=== PATIENT | male | born 1950 | race Caucasian/White ===

== ENCOUNTER 2018-11-10 15:09 | Outpatient (CLI) | payer MEDICARE ==
--- NOTE | 2018-11-10 16:01 | RAD ---
XR Wrist 3 Lt View STANDARD: 11/10/2018 3:25 AM CLINICAL INDICATION: Wrist pain COMPARISON: Left wrist radiograph dated January 07, 2005. TECHNIQUE: 4 views. Laterality: Left wrist. FINDINGS: Bones: There is a healed instrument distal radial shaft fracture that appears unchanged from the com parison. No acute fracture is evident. Joints: There is moderate to severe radiocarpal joint osteoarthrosis. There is ulnar minus configurat ion at the DRUJ. There is advanced STT osteoarthrosis. There is advanced midcarpal joint osteoarthrosis. Soft Tissue: There is Monckeberg calcifications within the soft tissues. There is nonspecific soft ti ssue swelling of the distal forearm, wrist and hand. IMPRESSION: Worsening osteoarthrosis of the left wrist.
--- NOTE | 2018-11-10 16:13 | RAD ---
XR Shoulder Lt 3 View STANDARD: 11/10/2018 3:20 AM CLINICAL INDICATION: Shoulder pain. COMPARISON: None. FINDINGS: Bones: No acute fracture. Glenohumeral joint: There is severe glenohumeral joint osteoarthrosis AC joint: There is [id number] AC joint osteoarthrosis. Visualized lung: Clear. Soft tissues: Within normal limits. IMPRESSION: Severe glenohumeral and mild to moderate AC joint osteoarthrosis.
== END 2018-11-10 15:10 | disposition home or self-care (01) ==
LOC: BURRAD 15:09
PROVIDERS: ATTEND Nurse Practitioner Family
DX: M25.512 Pain in left shoulder (principal); M25.532 Pain in left wrist; M19.012 Primary osteoarthritis, left shoulder; M19.032 Primary osteoarthritis, left wrist

== ENCOUNTER 2019-10-26 13:29 | Inpatient (IN) | payer MEDICARE ==
[2019-10-26 14:12] LABS: #Lymphocytes 0.9 thou/uL (1.20-3.40); #Monocytes 0.3 thou/uL (0.11-0.59); #Neutrophils 5.9 thou/uL (1.40-6.50); %Basophils 0.6 % (0.0-1.0); %Eosinophils 0.5 % (0.0-10.0); %Lymphocytes 12.9 % (21.0-51.0); %Monocytes 4.3 % (0.0-10.0); %Neutrophils 81.7 % (42.0-75.0); Hemoglobin 12.2 g/dL (14.0-18.0); Mean Corpuscular Hemoglobin 27.7 pg (27.0-31.0); Mean Corpuscular Volume 86.6 fL (78.0-98.0); Mean Platelet Volume 9.9 fL (7.4-10.4); Platelet Count 137 thou/uL (130-400); RBC Distribution Width 17.1 % (11.5-14.5); Red Blood Cell (RBC) Count 4.39 mill/uL (4.70-6.10); White Blood Cell (WBC) Count 7.2 thou/uL (4.8-10.8)
[2019-10-26] MEDS ORDERED: Piperacillin/Tazobactam 4.5 GM VIAL ONE (14:21)
[2019-10-26] MEDS ORDERED: Acetaminophen 500 MG TAB ONE (14:21)
[2019-10-26] MEDS ORDERED: Sodium Chloride 0.9% 100 ML ONE (14:24)
[2019-10-26 14:30] LABS: ALT (SGPT) 18 U/L (8-55); AST (SGOT) 31 U/L (5-34); Albumin 3.6 g/dL (3.4-4.8); Alkaline Phosphatase 60 U/L (40-110); Anion Gap 20 mmol/L (10-20); BUN (Urea Nitrogen) 18 mg/dL (8.4-25.7); Bilirubin, Total 1.5 mg/dL (0.2-1.2); Calc. Creatinine Clearance 0 mL/min (70-130); Calcium 9.6 mg/dL (7.8-10.44); Carbon Dioxide 20 mmol/L (23-31); Chloride 99 mmol/L (98-107); Estimated GFR-MDRD 87; Globulin 5.2 g/dL (2.4-3.5); Glucose 124 mg/dL (83-110); Potassium 4.5 mmol/L (3.5-5.1); Protein, Total 8.8 g/dL (5.8-8.1); Sodium 134 mmol/L (136-145)
[2019-10-26 15:19] LABS: Bilirubin Moderate (Negative); Blood, Urine Moderate (Negative); Clarity Cloudy (Clear); Glucose, Urine (Dipstick) Negative (Negative); Leukocyte Negative (Negative); Nitrite Negative (Negative); Protein, Urine (Dipstick) > or equal to 300 mg/dL (Neg-Trace)
[2019-10-26 15:33] LABS: Bacteria/HPF 1+ HPF (None Seen); Epithelial Cast None Seen LPF (None Seen); Mucous/LPF 3+ LPF (<2+); Oval Fat Bodies/HPF None Seen HPF (None Seen); RBC/HPF 0-3 HPF (0-3); Renal Epithelial 0-3 HPF (None Seen); Sperm/HPF None Seen HPF (None Seen); Squamous Epithelial 0-3 HPF (0-3); Transitional Epithelial None Seen HPF (None Seen); Trichomonas/HPF None Seen HPF (None Seen); WBC/HPF 0-3 HPF (0-3); White Blood Cell Cast None Seen LPF (None Seen); Yeast-Budding None Seen HPF (None Seen); Yeast-Hyphae None Seen HPF (None Seen)
[2019-10-26 15:34] LABS: Broad Cast None Seen LPF (None Seen); Calcium Oxalate Crystals None Seen HPF (None Seen); Cellular Cast None Seen LPF (None Seen); Fatty Cast None Seen LPF (None Seen); Other Casts None Seen LPF (None Seen); Red Blood Cell Cast None Seen LPF (None Seen); Triple Phosphate Crystal None Seen HPF (None Seen); Unclassified Crystals None Seen HPF (None Seen); Waxy Cast None Seen LPF (None Seen)
--- NOTE | 2019-10-26 17:59 | RAD ---
PORTABLE CHEST: 10/26/19 An AP portable film at 1401 is compared with a 03/14/19 study. The heart is borderline in size as before. There is no definite pulmonary edema or pleural effusion. No focal pulmonary infiltrate was seen. A few scattered nodular densities were noted as usual. There is a little focal pleural thickening along the right lateral hemithorax. The right hilum seems a dale le more prominent today than 2019. I cannot exclude some adenopathy here. IMPRESSION: Exam somewhat similar to before, but possible right hilar adenopathy. See above. POS: HOME
[2019-10-26 18:21] LABS: Lactic Acid 1.2 mmol/L (0.5-2.2)
[2019-10-26] MEDS ORDERED: Ondansetron ODT 4 MG TAB PO PRN (18:54)
[2019-10-26] MEDS ORDERED: Ondansetron PF 4 MG/2 ML Vial SLOW IVP PRN (18:54)
[2019-10-26] MEDS ORDERED: Isosorbide Mononitrate (ER) 30 MG TAB PO SCH (20:45)
[2019-10-26] MEDS ORDERED: Aspirin Chewable 81 MG TAB PO SCH (20:45)
[2019-10-26] MEDS ORDERED: Allopurinol 100 MG TAB PO SCH (20:45)
[2019-10-26] MEDS: Sodium Chloride 0.9% 1,000 ML IV SCH ×2 (20:46→23:30)
[2019-10-26] MEDS: Piperacillin/Tazobactam 4.5 GM in Sodium Chloride 0.9% 100 ML IVPB SCH (20:47)
[2019-10-26] MEDS: Furosemide 20 MG TAB PO SCH (20:48)
[2019-10-26] MEDS: Metoprolol Tartrate 25 MG TAB PO SCH (20:48)
[2019-10-26] MEDS: traMADol HCl 50 MG TAB PO PRN (22:15)
[2019-10-27] MEDS: Piperacillin/Tazobactam 4.5 GM in Sodium Chloride 0.9% 100 ML IVPB SCH ×4 (01:13→20:35)
[2019-10-27] MEDS: Vancomycin HCl 1 GM in Sodium Chloride 0.9% 250 ML 250 ML IVPB SCH ×2 (03:31→15:18)
[2019-10-27] MEDS: traMADol HCl 50 MG TAB PO PRN ×2 (05:11→20:46)
[2019-10-27] MEDS: Metoprolol Tartrate 25 MG TAB PO SCH ×2 (08:26→20:41)
[2019-10-27] MEDS: Furosemide 20 MG TAB PO SCH ×2 (08:26→13:48)
[2019-10-27] MEDS ORDERED: Isosorbide Mononitrate (ER) 30 MG TAB PO SCH (09:00)
[2019-10-27] MEDS ORDERED: Aspirin Chewable 81 MG TAB PO SCH (09:00)
[2019-10-27] MEDS ORDERED: Prevnar 13-Val Conj/PF 0.5 ML SYRINGE IM ONE (09:00)
[2019-10-27] MEDS ORDERED: Allopurinol 100 MG TAB PO SCH (09:00)
[2019-10-27] MEDS ORDERED: traMADol HCl 50 MG TAB PO PRN ×2 (09:20→09:33)
[2019-10-27] MEDS ORDERED: Furosemide 20 MG TAB PO SCH (09:45)
[2019-10-27] MEDS ORDERED: Enoxaparin Sodium 40 MG/0.4 ML SYRINGE SC SCH (09:45)
[2019-10-27] MEDS ORDERED: Folic Acid 1 MG TAB PO SCH (09:45)
--- NOTE | 2019-10-27 10:39 | CT ---
CT OF THE CHEST AND ABDOMEN AND PELVIS WITH IV CONTRAST: INDICATION: A 69-year-old male with a history of fever of unknown origin and a suspicion of COVID-19 infection. The patient states lower leg and feet pain for the 4 days with a history of Hodgkin's lymphoma. COMPARISON: CT of the chest, abdomen, and pelvis dated 02/07/2019 and May 14, 2017. CHEST: There are areas of pleural thickening involving the lateral right hemithorax chest wall with worsenin g subsegmental atelectasis within the lateral segment of the right middle lobe. There are new areas of peribronchial ground-glass opacity seen peripherally within the anterior and posterior segments of the right upper lobe as well as within the apical posterior segment of the left upper lobe. There a re areas of subsegmental volume loss within the apical posterior segment of the left upper lobe that has been stable. No felipe airspace consolidation is noted. There is stable calcified granuloma in the right middle lo be and lingula. The lymph nodes within the mediastinum are stable to slightly smaller in size to the most recent comparison in January of 2019. The most prominent is an AP window lymph node measuring 1 .6 cm which is stable. There are coronary artery and thoracic aorta calcifications. There is bilate ral male gynecomastia. No axillary lymphadenopathy is evident. ABDOMEN AND PELVIS: Respiratory motion artifact slightly limits image detail. Beam hardening and scattered artifact from the patient's upper extremities being adjacent to the torso limits detail. Suspected calcified lymp h nodes within the subdiaphragmatic yulissa region is similar-appearing. Layered gallstones are seen within the gallbladder. No focal hepatic lesion is evident. There is a stable right renal cyst. Left kidney, adrenal glands, and spleen appear within normal black its. There is a mild amount of retained stool within the rectum. Small bowel is of normal caliber. Visua lized bladder is unremarkable appearing. There are bilateral total hip replacements. There is diffu se osteopenia. There are scattered degenerative changes. IMPRESSION: 1. Areas of peribronchial ground-glass opacities seen within both upper lobes can be seen with atypi janes infectious processes such as viral pneumonia. Certainly this is a pattern that could be seen wit h COVID-19. Recommend correlation with the patient's testing and continued followup. 2. Stable to slightly less prominent mediastinal lymph nodes when compared to the most recent CT of the chest, abdomen, and pelvis dated February 07, 2019. The largest lymph node is seen within the AP w indow region measuring 1.6 cm. 3. Stable cholelithiasis. 4. Stable right renal cyst. POS: BH
[2019-10-27 10:41] LABS: SARS-CoV-2 MS2 Positive; SARS-CoV-2 N Gene Negative; SARS-CoV-2 S Gene Negative; SARS-CoV-2 orf1ab Negative
[2019-10-27 11:00] LABS: #Basophils 0.1 thou/uL (0.0-0.2); #Eosinphils 0.1 thou/uL (0.0-0.7); #Lymphocytes 0.7 thou/uL (1.20-3.40); #Monocytes 0.3 thou/uL (0.11-0.59); #Neutrophils 4.9 thou/uL (1.40-6.50); %Basophils 0.9 % (0.0-1.0); %Eosinophils 1.7 % (0.0-10.0); %Lymphocytes 11.6 % (21.0-51.0); %Monocytes 4.5 % (0.0-10.0); %Neutrophils 81.3 % (42.0-75.0); Hemoglobin 9.2 g/dL (14.0-18.0); Mean Corpuscular HGB CONC 31.4 g/dL (32.0-36.0); Mean Corpuscular Hemoglobin 27.7 pg (27.0-31.0); Mean Corpuscular Volume 88.1 fL (78.0-98.0); Mean Platelet Volume 11.8 fL (7.4-10.4); Platelet Count 116 thou/uL (130-400); RBC Distribution Width 17.6 % (11.5-14.5); Red Blood Cell (RBC) Count 3.31 mill/uL (4.70-6.10); White Blood Cell (WBC) Count 6.1 thou/uL (4.8-10.8)
[2019-10-27 11:05] LABS: ALT (SGPT) 14 U/L (8-55); AST (SGOT) 23 U/L (5-34); Albumin 2.8 g/dL (3.4-4.8); Alkaline Phosphatase 45 U/L (40-110); Anion Gap 14 mmol/L (10-20); BUN (Urea Nitrogen) 16 mg/dL (8.4-25.7); Bilirubin, Total 1.1 mg/dL (0.2-1.2); Calc. Creatinine Clearance 171 mL/min (70-130); Calcium 8.2 mg/dL (7.8-10.44); Carbon Dioxide 20 mmol/L (23-31); Chloride 103 mmol/L (98-107); Estimated GFR-MDRD Greater than 90; Globulin 3.8 g/dL (2.4-3.5); Glucose 112 mg/dL (83-110); Protein, Total 6.6 g/dL (5.8-8.1); Sodium 133 mmol/L (136-145)
[2019-10-27 11:06] LABS: Troponin I 0.017 ng/mL (< 0.028)
[2019-10-27 11:21] LABS: Platelet Morphology Comment Appears Decreased; RBC Morphology Normal
[2019-10-27] MEDS ORDERED: Saccharomyces boulardii 250 MG CAP PO SCH (11:30)
[2019-10-27] MEDS: Sodium Chloride 0.9% 1,000 ML IV SCH (13:39)
[2019-10-27] MEDS: Acetaminophen 325 MG TAB PO PRN (16:58)
[2019-10-27] MEDS: Atorvastatin Calcium 40 MG TAB PO SCH (20:40)
[2019-10-27] MEDS ORDERED: FUROSEMIDE 20 MG PO SCH (21:00)
[2019-10-28] MEDS ORDERED: Sodium Chloride 0.9% 1,000 ML IV SCH (00:45)
[2019-10-28] MEDS: Piperacillin/Tazobactam 4.5 GM in Sodium Chloride 0.9% 100 ML IVPB SCH ×4 (01:44→20:20)
[2019-10-28] MEDS: Vancomycin HCl 1 GM in Sodium Chloride 0.9% 250 ML 250 ML IVPB SCH ×2 (02:42→14:57)
[2019-10-28 05:38] LABS: ALT (SGPT) 14 U/L (8-55); AST (SGOT) 24 U/L (5-34); Albumin 2.8 g/dL (3.4-4.8); Alkaline Phosphatase 49 U/L (40-110); Anion Gap 14 mmol/L (10-20); BUN (Urea Nitrogen) 14 mg/dL (8.4-25.7); Bilirubin, Total 0.9 mg/dL (0.2-1.2); Calc. Creatinine Clearance 171 mL/min (70-130); Calcium 8.4 mg/dL (7.8-10.44); Carbon Dioxide 22 mmol/L (23-31); Chloride 103 mmol/L (98-107); Estimated GFR-MDRD Greater than 90; Globulin 3.9 g/dL (2.4-3.5); Glucose 97 mg/dL (83-110); Potassium 3.7 mmol/L (3.5-5.1); Protein, Total 6.7 g/dL (5.8-8.1); Sodium 135 mmol/L (136-145); Uric Acid Less than 2.0 mg/dL (3.5-7.2)
[2019-10-28 05:53] LABS: #Basophils 0.1 thou/uL (0.0-0.2); #Eosinphils 0.2 thou/uL (0.0-0.7); #Lymphocytes 0.5 thou/uL (1.20-3.40); #Monocytes 0.3 thou/uL (0.11-0.59); #Neutrophils 3.9 thou/uL (1.40-6.50); %Basophils 1.6 % (0.0-1.0); %Eosinophils 4.3 % (0.0-10.0); %Lymphocytes 10.5 % (21.0-51.0); %Neutrophils 78.6 % (42.0-75.0); Anisocytosis SLIGHT = 6-15 cells (100X) (0-5/hpf); Hemoglobin 9.1 g/dL (14.0-18.0); Large Platelets SLIGHT; MDiff Complete? YES; Mean Corpuscular HGB CONC 30.6 g/dL (32.0-36.0); Mean Corpuscular Hemoglobin 27.4 pg (27.0-31.0); Mean Corpuscular Volume 89.5 fL (78.0-98.0); Mean Platelet Volume 11.9 fL (7.4-10.4); Ovalocytes MODERATE= 6-15 cells (100X) (0-1/hpf); Platelet Count 119 thou/uL (130-400); Platelet Morphology Comment Appears Decreased; RBC Distribution Width 17.8 % (11.5-14.5); Red Blood Cell (RBC) Count 3.32 mill/uL (4.70-6.10)
[2019-10-28] MEDS: Allopurinol 100 MG TAB PO SCH (08:22)
[2019-10-28] MEDS: Metoprolol Tartrate 25 MG TAB PO SCH ×2 (08:23→20:22)
[2019-10-28] MEDS: Isosorbide Mononitrate (ER) 30 MG TAB PO SCH (08:23)
[2019-10-28] MEDS: Saccharomyces boulardii 250 MG CAP PO SCH (08:23)
[2019-10-28] MEDS: Folic Acid 1 MG TAB PO SCH (08:23)
[2019-10-28] MEDS: Aspirin Chewable 81 MG TAB PO SCH (08:23)
[2019-10-28] MEDS: Acetaminophen 325 MG TAB PO PRN ×2 (08:23→22:44)
[2019-10-28] MEDS: Furosemide 20 MG TAB PO SCH ×2 (08:23→14:13)
[2019-10-28] MEDS: Enoxaparin Sodium 40 MG/0.4 ML SYRINGE SC SCH (08:24)
[2019-10-28] MEDS ORDERED: ATORVASTATIN 80 MG PO SCH (09:00)
[2019-10-28] MEDS ORDERED: ASPIRIN PO SCH (09:00)
[2019-10-28] MEDS ORDERED: Non-Formulary Item 1 EACH (Folic Acid [Folic Acid] 0.8 MG) PO SCH (09:00)
[2019-10-28] MEDS ORDERED: ALLOPURINOL 300 MG PO SCH (09:00)
--- NOTE | 2019-10-28 09:29 | RAD ---
RADIOGRAPH CHEST 1 VIEW: DATE: 10/28/2019 TIME: 9:20 AM HISTORY: 69 year old male with pneumonia COMPARISON: 10/26/2019. FINDINGS: Limited evaluation of lung boss because of body habitus. Mild nodular interstitial pattern involvin g much of the right lung. Magnification of cardiac shadow. No large consolidation or pneumothorax. Lateral costophrenic angles are not effaced. Allowing for technical differences, there is probably no interval change. Prominent right hilum. IMPRESSION: 1. Mild nodular interstitial pattern in right lung. 2. No definite interval change.
--- NOTE | 2019-10-28 10:19 | CT ---
CT HEAD WITHOUT IV CONTRAST COMPARISON: MRI brain on 08/10/2016 HISTORY: CVA. TECHNIQUE: Axial CT imaging at 5 mm intervals from vertex through skull base without contrast FINDINGS: There is decreased attenuation in the periventricular white matter which is nonspecific but likely re flective of chronic small vessel ischemic changes. Small low-density focus is seen in the superior aspect of the li. This is only seen on a single slice selection and is likely attributable to volum e averaging as opposed to a lacunar infarction. There is mild cerebral volume loss not unexpected for the patient's age. The ventricular system is no rmal in size, shape, and position for the degree of sulcal atrophy. Symmetric calcifications are seen in each basal ganglia. There is no evidence of an acute infarction, hemorrhage, mass effect, or midline shift. Minimal mucosal thickening in the anterior ethmoidal air cells. Osseous structures appear intact. IMPRESSION: 1. No acute intracranial abnormality demonstrated. 2. Chronic small vessel ischemic changes and cerebral volume loss.
[2019-10-28 14:17] LABS: Vancomycin, Trough 9.4 ug/mL
[2019-10-28] MEDS: Vancomycin HCl 750 MG in Sodium Chloride 0.9% 250 ML 250 ML IVPB SCH (14:56)
[2019-10-28] MEDS ORDERED: Vancomycin HCl 1.75 GM in Sodium Chloride 0.9% 500 ML IVPB SCH (15:00)
[2019-10-28] MEDS: Atorvastatin Calcium 40 MG TAB PO SCH (20:22)
[2019-10-29] MEDS: Piperacillin/Tazobactam 4.5 GM in Sodium Chloride 0.9% 100 ML IVPB SCH ×3 (01:50→14:03)
[2019-10-29] MEDS: Vancomycin HCl 750 MG in Sodium Chloride 0.9% 250 ML 250 ML IVPB SCH ×2 (03:01→14:59)
[2019-10-29] MEDS: Vancomycin HCl 1 GM in Sodium Chloride 0.9% 250 ML 250 ML IVPB SCH ×2 (03:02→14:59)
[2019-10-29] MEDS ORDERED: Vancomycin HCl 750 MG VIAL ONE (04:47)
[2019-10-29 05:14] LABS: Hemoglobin 9.4 g/dL (14.0-18.0); Platelet Count 136 thou/uL (130-400)
[2019-10-29 05:19] VITALS: BP 129/62; TEMP 98.1
[2019-10-29 05:28] LABS: Calc. Creatinine Clearance 181 mL/min (70-130); Estimated GFR-MDRD Greater than 90
--- NOTE | 2019-10-29 05:52 | HP ---
HISTORY OF PRESENT ILLNESS: The patient is a poor historian. Per his and grandson, the patient is having increased confusion after several weeks of decreased appetite, but for the last week, the patient began having incontinence, confusion, inability to ambulate, and diffuse joint aches and pains. The patient was seen in the emergency room, was found to have a temperature of 101.8 was suspected for sepsis. The patient has a history of a chronic dry cough, which is unchanged. No recent ill exposures or recent travel. Apparently, he was checked for COVID-19 just because of concerns without any symptoms several weeks ago and family believes it was negative. He has had no significant headache. Sleeping been well. No diarrhea reported. He apparently may have had some dysuria several days ago, but does not at this time and no other significant complaints. The patient has not had any recent falls. No injuries reported. No recent rashes. Denies any change in taste and no recent weight changes. PAST MEDICAL HISTORY: Significant for: 1. Coronary artery disease. 2. History of Hodgkin lymphoma in 1989 with no recurrence. 3. History of gout. 4. History of avascular necrosis of the hip. 5. History of hypertension. 6. History of hyperlipidemia. PAST SURGICAL HISTORY: Status post stent placement x2 and bilateral hip replacement. Family does report the patient has had some infection in his lungs from chemotherapy related to his Hodgkin lymphoma many years ago. MEDICATIONS: The patient is on: 1. Atorvastatin 80 mg daily. 2. Pantoprazole 40 mg daily. 3. Aspirin 81 mg daily. 4. Metoprolol tartrate 25 mg b.i.d. 5. Lisinopril 5 mg daily. 6. Isosorbide mononitrate 30 mg daily. 7. Allopurinol 300 mg daily. 8. Folic acid 0.8 mg daily. SOCIAL HISTORY: The patient lives with his . He has had some overall decline in status for several months with decreased ambulation and decreased appetite for several weeks per . The patient had episodes of mental status effects with short-term memory loss. Had normal MRI a couple of years ago, but no further workup since then. ALLERGIES: NO SIGNIFICANT KNOWN ALLERGIES. REVIEW OF SYSTEMS: The patient denies any visual changes. No sore throat reported by the patient. Cough is at baseline. Decreased appetite without nausea or emesis reported. No diarrhea reported. The patient did have some dysuria several days ago, but none since, he has become incontinent. The patient reports diffuse joint aches and pains. The patient denies depression. No recent rashes reported. PHYSICAL EXAMINATION: VITAL SIGNS: The patient in the emergency room was tachycardic in the one-teens and blood pressure slightly low at 110 systolic. The patient was slightly tachypneic in the 20s, O2 saturation was initially 88%, which improved on room air after being on 2 L of oxygen for a couple of hours. GENERAL: White male, lying in bed, easily confused, but cooperative and alert otherwise. HEENT: Atraumatic, normocephalic. Extraocular movements are intact. Pupils are equal, round, reactive to light and accommodation. Oropharynx, mucous membranes were dry. No lesions were noted. NECK: Supple. No mass palpated. CHEST: Clear to auscultation bilaterally. HEART: Regular rate and rhythm. ABDOMEN: Bowel sounds are positive in all 4 quadrants. No obvious focal tenderness noted. No masses palpated. EXTREMITIES: Show slight swelling of the ankles bilaterally without edema. The patient reported achiness and tenderness to bilateral ankles, bilateral knees, and bilateral hips without any erythema nor warmth. LABORATORY DATA: CBC had a normal white count of less than 10,000. However, his metabolic panel was nondiagnostic without significant abnormalities. Troponin was 0.03, just above normal. Lactic acid was 2.4. Urinalysis showed 1+ bacteria, but no white blood cells. ASSESSMENT AND PLAN: 1. Fever of unknown origin. The patient appears to be slightly septic, was given 2 L IV fluids. We will continue normal saline. Repeat lactic acid level. Start the patient on vancomycin and Zosyn pending blood and urine culture results. Etiology is possibly pneumonia. I would do a COVID-19, although no significant respiratory symptoms were reported. The patient is a poor historian. 2. Urinary tract infection is a possibility with a history of mild dysuria and new onset incontinence. 3. Altered mental status. The patient appears to have some underlying dementia like symptoms, which have been exacerbated by his new onset of sepsis. 4. Coronary artery disease. The patient will continue on his beta-aparna and nitrite. We will hold lisinopril while his blood pressure is slightly low at this time. 5. Decreased appetite with nausea. Suspect this is secondary to his sepsis as above. Case was discussed in detail with the patient as well as his via phone. He will be in contact isolation until COVID results are back. Job ID: [id number]
[2019-10-29] MEDS: Allopurinol 100 MG TAB PO SCH (08:19)
[2019-10-29] MEDS: Enoxaparin Sodium 40 MG/0.4 ML SYRINGE SC SCH (08:19)
[2019-10-29] MEDS: Saccharomyces boulardii 250 MG CAP PO SCH (08:19)
[2019-10-29] MEDS: Metoprolol Tartrate 25 MG TAB PO SCH (08:20)
[2019-10-29] MEDS: Folic Acid 1 MG TAB PO SCH (08:20)
[2019-10-29] MEDS: Isosorbide Mononitrate (ER) 30 MG TAB PO SCH (08:20)
[2019-10-29] MEDS: Aspirin Chewable 81 MG TAB PO SCH (08:20)
[2019-10-29] MEDS: Furosemide 20 MG TAB PO SCH ×2 (08:20→14:03)
[2019-10-29] MEDS: traMADol HCl 50 MG TAB PO PRN (08:26)
== END 2019-10-29 15:37 | disposition swing bed (61) | DRG 871 ==
LOC: BURERS 13:29 → UNDOADMIN 16:00 → BURMED 16:00 → UNDOADMIN 10-27 15:06 → BURMED 10-27 15:06
PROVIDERS: ADMIT Family Medicine; ATTEND Family Medicine
DX: A41.9 Sepsis, unspecified organism (principal); J18.9 Pneumonia, unspecified organism; N39.0 Urinary tract infection, site not specified; I25.10 Atherosclerotic heart disease of native coronary artery without angina pectoris; M10.9 Gout, unspecified; I10 Essential (primary) hypertension; E78.5 Hyperlipidemia, unspecified; F03.90 Unspecified dementia, unspecified severity, without behavioral disturbance, psychotic disturbance, mood disturbance, and anxiety; Z96.643 Presence of artificial hip joint, bilateral; Z85.72 Personal history of non-Hodgkin lymphomas; Z95.5 Presence of coronary angioplasty implant and graft
CPT/HCPCS: 36415; 70450; 71045; 71260; 74177; 80053; 80202; 81003; 81015; 82553; 82565; 83605; 83880; 84484; 84550; 85014; 85018; 85025; 85049; 85652; 87040; 87086; 87633; 87635; 87798; 87804; 90471; 90670; 94760; G0009; J1650; J2405; J2543; J3370; J3490; J7050; U0003

== ENCOUNTER 2019-10-29 15:34 | Inpatient (IN) | payer MEDICARE, OTHER ==
[2019-10-29] MEDS ORDERED: Ondansetron ODT 4 MG TAB PO PRN (16:10)
[2019-10-29] MEDS: Benzonatate 100 MG CAP PO PRN (17:28)
[2019-10-29] MEDS: traMADol HCl 50 MG TAB PO PRN (18:26)
[2019-10-29] MEDS: Atorvastatin Calcium 40 MG TAB PO SCH (20:55)
[2019-10-29] MEDS: Metoprolol Tartrate 25 MG TAB PO SCH (20:55)
[2019-10-29] MEDS: Piperacillin/Tazobactam 4.5 GM in Sodium Chloride 0.9% 100 ML IVPB SCH (20:59)
[2019-10-30] MEDS: Piperacillin/Tazobactam 4.5 GM in Sodium Chloride 0.9% 100 ML IVPB SCH ×4 (01:38→21:03)
[2019-10-30 02:13] LABS: Vancomycin, Trough 16.3 ug/mL
[2019-10-30] MEDS: Vancomycin HCl 1 GM in Sodium Chloride 0.9% 250 ML 250 ML IVPB SCH ×2 (02:33→14:50)
[2019-10-30] MEDS: Vancomycin HCl 750 MG in Sodium Chloride 0.9% 250 ML 250 ML IVPB SCH ×2 (02:34→14:50)
[2019-10-30] MEDS: traMADol HCl 50 MG TAB PO PRN (07:33)
[2019-10-30] MEDS: Metoprolol Tartrate 25 MG TAB PO SCH ×2 (08:06→21:02)
[2019-10-30] MEDS: Allopurinol 100 MG TAB PO SCH (08:06)
[2019-10-30] MEDS: Folic Acid 1 MG TAB PO SCH (08:06)
[2019-10-30] MEDS: Isosorbide Mononitrate (ER) 30 MG TAB PO SCH (08:06)
[2019-10-30] MEDS: Saccharomyces boulardii 250 MG CAP PO SCH (08:06)
[2019-10-30] MEDS: Aspirin 81 mg Enteric Coated Tablet PO SCH (08:07)
[2019-10-30] MEDS: Enoxaparin Sodium 40 MG/0.4 ML SYRINGE SC SCH (08:07)
[2019-10-30] MEDS: Benzonatate 100 MG CAP PO PRN (08:21)
[2019-10-30] MEDS ORDERED: Furosemide 20 MG TAB PO SCH (09:00)
[2019-10-30] MEDS ORDERED: Furosemide 40 MG/4 ML VIAL SLOW IVP SCH (14:00)
[2019-10-30] MEDS: Acetaminophen 325 MG TAB PO PRN (18:31)
--- NOTE | 2019-10-30 18:40 | RAD ---
PORTABLE CHEST: Date: 10-30-2019 An AP portable film at 0756 is compared with a 10-28-2019 study. FINDINGS: The vessels seem more congested today than they were previously. I cannot rule out an element of jadyn estive heart failure. The heart is mildly enlarged. The area of streaking in the vicinity of the righ t middle lobe seems a little more prominent today than previously. Sensitivity to subtle disease in t his patient's chest is very low and only obtainable on CT. There are no large effusions. IMPRESSION: 1. Interval development of congestion of vessels. 2. Slight increase in density of right middle lobe linear infiltrate. Preliminary report taken to the floor at approximately 0940. POS: HOME
[2019-10-30] MEDS: Atorvastatin Calcium 40 MG TAB PO SCH (20:57)
[2019-10-31] MEDS: Piperacillin/Tazobactam 4.5 GM in Sodium Chloride 0.9% 100 ML IVPB SCH ×4 (02:10→21:17)
[2019-10-31] MEDS: Vancomycin HCl 750 MG in Sodium Chloride 0.9% 250 ML 250 ML IVPB SCH ×2 (02:11→15:22)
[2019-10-31] MEDS: Vancomycin HCl 1 GM in Sodium Chloride 0.9% 250 ML 250 ML IVPB SCH ×2 (02:12→15:23)
[2019-10-31 04:57] LABS: Platelet Count 143 thou/uL (130-400)
[2019-10-31 05:13] LABS: ALT (SGPT) 21 U/L (8-55); AST (SGOT) 46 U/L (5-34); Albumin 2.8 g/dL (3.4-4.8); Alkaline Phosphatase 64 U/L (40-110); Anion Gap 14 mmol/L (10-20); BUN (Urea Nitrogen) 9 mg/dL (8.4-25.7); Bilirubin, Total 0.8 mg/dL (0.2-1.2); Calc. Creatinine Clearance 164 mL/min (70-130); Calcium 8.7 mg/dL (7.8-10.44); Carbon Dioxide 26 mmol/L (23-31); Chloride 100 mmol/L (98-107); Estimated GFR-MDRD Greater than 90; Globulin 4.2 g/dL (2.4-3.5); Glucose 115 mg/dL (83-110); Potassium 3.7 mmol/L (3.5-5.1); Sodium 136 mmol/L (136-145)
[2019-10-31 05:54] LABS: #Eosinphils 0.2 thou/uL (0.0-0.7); #Lymphocytes 0.5 thou/uL (1.20-3.40); #Monocytes 0.2 thou/uL (0.11-0.59); #Neutrophils 3.1 thou/uL (1.40-6.50); %Basophils 1.1 % (0.0-1.0); %Eosinophils 4.2 % (0.0-10.0); %Monocytes 5.1 % (0.0-10.0); %Neutrophils 76.7 % (42.0-75.0); Anisocytosis SLIGHT = 6-15 cells (100X) (0-5/hpf); Burr Cells SLIGHT = 2-5 cells (100X) (0-1/hpf); Hemoglobin 9.9 g/dL (14.0-18.0); Large Platelets SLIGHT; MDiff Complete? YES; Mean Corpuscular Hemoglobin 27.4 pg (27.0-31.0); Mean Corpuscular Volume 88.3 fL (78.0-98.0); Mean Platelet Volume 10.2 fL (7.4-10.4); Ovalocytes SLIGHT = 2-5 cells (100X) (0-1/hpf); Platelet Count 143 thou/uL (130-400); Platelet Morphology Comment Appears Adequate; RBC Distribution Width 17.6 % (11.5-14.5)
[2019-10-31] MEDS: traMADol HCl 50 MG TAB PO PRN (07:48)
[2019-10-31] MEDS: Folic Acid 1 MG TAB PO SCH (07:49)
[2019-10-31] MEDS: Allopurinol 100 MG TAB PO SCH (07:49)
[2019-10-31] MEDS: Enoxaparin Sodium 40 MG/0.4 ML SYRINGE SC SCH (07:50)
[2019-10-31] MEDS: Aspirin 81 mg Enteric Coated Tablet PO SCH (07:50)
[2019-10-31] MEDS: Furosemide 20 MG TAB PO SCH ×2 (07:50→14:06)
[2019-10-31] MEDS: Metoprolol Tartrate 25 MG TAB PO SCH ×2 (07:50→21:16)
[2019-10-31] MEDS: Isosorbide Mononitrate (ER) 30 MG TAB PO SCH (07:50)
[2019-10-31] MEDS: Saccharomyces boulardii 250 MG CAP PO SCH (07:50)
[2019-10-31 11:27] LABS: SARS-CoV-2 MS2 Positive; SARS-CoV-2 N Gene Negative; SARS-CoV-2 S Gene Negative; SARS-CoV-2 orf1ab Negative
[2019-10-31] MEDS: Atorvastatin Calcium 40 MG TAB PO SCH (21:16)
[2019-11-01] MEDS: Piperacillin/Tazobactam 4.5 GM in Sodium Chloride 0.9% 100 ML IVPB SCH ×4 (02:06→20:54)
[2019-11-01] MEDS: Vancomycin HCl 1 GM in Sodium Chloride 0.9% 250 ML 250 ML IVPB SCH ×2 (02:10→15:03)
[2019-11-01] MEDS: Vancomycin HCl 750 MG in Sodium Chloride 0.9% 250 ML 250 ML IVPB SCH ×2 (02:10→15:04)
[2019-11-01] MEDS: Allopurinol 100 MG TAB PO SCH (08:29)
[2019-11-01] MEDS: Enoxaparin Sodium 40 MG/0.4 ML SYRINGE SC SCH (08:29)
[2019-11-01] MEDS: Folic Acid 1 MG TAB PO SCH (08:30)
[2019-11-01] MEDS: Isosorbide Mononitrate (ER) 30 MG TAB PO SCH (08:30)
[2019-11-01] MEDS: Metoprolol Tartrate 25 MG TAB PO SCH ×2 (08:30→20:53)
[2019-11-01] MEDS: Saccharomyces boulardii 250 MG CAP PO SCH (08:30)
[2019-11-01] MEDS: Aspirin 81 mg Enteric Coated Tablet PO SCH (08:30)
[2019-11-01] MEDS: Furosemide 20 MG TAB PO SCH ×2 (08:30→14:04)
[2019-11-01 09:35] VITALS: BMI 37.8
[2019-11-01 14:18] LABS: Vancomycin, Trough 17.6 ug/mL
[2019-11-01] MEDS: Atorvastatin Calcium 40 MG TAB PO SCH (20:53)
[2019-11-02] MEDS: Piperacillin/Tazobactam 4.5 GM in Sodium Chloride 0.9% 100 ML IVPB SCH ×3 (02:04→14:55)
[2019-11-02] MEDS: Vancomycin HCl 1 GM in Sodium Chloride 0.9% 250 ML 250 ML IVPB SCH (02:21)
[2019-11-02] MEDS: Vancomycin HCl 750 MG in Sodium Chloride 0.9% 250 ML 250 ML IVPB SCH (02:21)
[2019-11-02] MEDS: Acetaminophen 325 MG TAB PO PRN (03:49)
[2019-11-02 05:00] LABS: Hemoglobin 9.6 g/dL (14.0-18.0); Platelet Count 167 thou/uL (130-400)
[2019-11-02 05:09] LABS: Calc. Creatinine Clearance 157 mL/min (70-130); Estimated GFR-MDRD Greater than 90
[2019-11-02] MEDS: Enoxaparin Sodium 40 MG/0.4 ML SYRINGE SC SCH (09:34)
[2019-11-02] MEDS: Allopurinol 100 MG TAB PO SCH (09:35)
[2019-11-02] MEDS: Aspirin 81 mg Enteric Coated Tablet PO SCH (09:35)
[2019-11-02] MEDS: Folic Acid 1 MG TAB PO SCH (09:35)
[2019-11-02] MEDS: Saccharomyces boulardii 250 MG CAP PO SCH (09:35)
[2019-11-02] MEDS: traMADol HCl 50 MG TAB PO PRN (09:36)
[2019-11-02] MEDS: Metoprolol Tartrate 25 MG TAB PO SCH ×2 (09:36→20:53)
[2019-11-02] MEDS: Isosorbide Mononitrate (ER) 30 MG TAB PO SCH (09:37)
[2019-11-02] MEDS: Furosemide 20 MG TAB PO SCH ×2 (09:38→14:45)
[2019-11-02 14:34] LABS: #Eosinphils 0.2 thou/uL (0.0-0.7); #Lymphocytes 0.8 thou/uL (1.20-3.40); #Monocytes 0.2 thou/uL (0.11-0.59); #Neutrophils 3.4 thou/uL (1.40-6.50); %Eosinophils 3.6 % (0.0-10.0); %Lymphocytes 17.6 % (21.0-51.0); %Monocytes 4.5 % (0.0-10.0); %Neutrophils 73.4 % (42.0-75.0); Hemoglobin 10.2 g/dL (14.0-18.0); Mean Corpuscular Hemoglobin 27.3 pg (27.0-31.0); Mean Platelet Volume 10.6 fL (7.4-10.4); Platelet Count 201 thou/uL (130-400); Red Blood Cell (RBC) Count 3.74 mill/uL (4.70-6.10); White Blood Cell (WBC) Count 4.7 thou/uL (4.8-10.8)
[2019-11-02 14:46] LABS: ALT (SGPT) 32 U/L (8-55); AST (SGOT) 48 U/L (5-34); Albumin 3.1 g/dL (3.4-4.8); Alkaline Phosphatase 72 U/L (40-110); Anion Gap 14 mmol/L (10-20); BUN (Urea Nitrogen) 10 mg/dL (8.4-25.7); Bilirubin, Total 0.4 mg/dL (0.2-1.2); CRP (Inflammatory) 5.81 mg/dL (= or < 0.5); Calc. Creatinine Clearance 146 mL/min (70-130); Carbon Dioxide 27 mmol/L (23-31); Chloride 102 mmol/L (98-107); Estimated GFR-MDRD Greater than 90; Globulin 4.5 g/dL (2.4-3.5); Glucose 130 mg/dL (83-110); Potassium 3.6 mmol/L (3.5-5.1); Protein, Total 7.6 g/dL (5.8-8.1); Sodium 139 mmol/L (136-145)
--- NOTE | 2019-11-02 18:34 | RAD ---
PORTABLE CHEST: 11/02/19 An AP portable film at 1437 is compared with a 10/30/2019 study. There is still some mild congestive change in the vessels, but it has improved since the prior exam. The heart size is stable. There are no large pleural effusions. No new infiltrates were detected. IMPRESSION: Congestive changes with slight improvement over the last three days. POS: HOME
[2019-11-02] MEDS: Atorvastatin Calcium 40 MG TAB PO SCH (20:52)
[2019-11-03] MEDS: Furosemide 20 MG TAB PO SCH ×2 (08:35→13:18)
[2019-11-03] MEDS: Folic Acid 1 MG TAB PO SCH (08:35)
[2019-11-03] MEDS: Isosorbide Mononitrate (ER) 30 MG TAB PO SCH (08:35)
[2019-11-03] MEDS: Enoxaparin Sodium 40 MG/0.4 ML SYRINGE SC SCH (08:35)
[2019-11-03] MEDS: Allopurinol 100 MG TAB PO SCH (08:35)
[2019-11-03] MEDS: Saccharomyces boulardii 250 MG CAP PO SCH (08:35)
[2019-11-03] MEDS: Aspirin 81 mg Enteric Coated Tablet PO SCH (08:36)
[2019-11-03] MEDS: Metoprolol Tartrate 25 MG TAB PO SCH (08:36)
[2019-11-03] MEDS: traMADol HCl 50 MG TAB PO PRN (08:43)
[2019-11-03 14:28] LABS: Vancomycin, Trough 6.4 ug/mL
[2019-11-03 19:22] VITALS: BP 144/67; TEMP 101.4
[2019-11-03 19:37] LABS: Bilirubin Negative (Negative); Blood, Urine Negative (Negative); Glucose, Urine (Dipstick) Negative (Negative); Leukocyte Negative (Negative); Nitrite Negative (Negative); Protein, Urine (Dipstick) 100 mg/dL (Neg-Trace); Urobilinogen 0.2 mg/dL (Less than 2)
[2019-11-03 19:39] LABS: Clarity Hazy (Clear)
[2019-11-03 19:42] LABS: Bacteria/HPF 2+ HPF (None Seen); Mucous/LPF 1+ LPF (<2+); RBC/HPF 0-3 HPF (0-3); Squamous Epithelial 0-3 HPF (0-3); WBC/HPF 0-3 HPF (0-3)
[2019-11-03 19:42] LABS: ALT (SGPT) 36 U/L (8-55); AST (SGOT) 49 U/L (5-34); Albumin 3.2 g/dL (3.4-4.8); Alkaline Phosphatase 69 U/L (40-110); Anion Gap 18 mmol/L (10-20); BUN (Urea Nitrogen) 12 mg/dL (8.4-25.7); Bilirubin, Total 0.6 mg/dL (0.2-1.2); Calc. Creatinine Clearance 146 mL/min (70-130); Carbon Dioxide 21 mmol/L (23-31); Chloride 97 mmol/L (98-107); Estimated GFR-MDRD Greater than 90; Globulin 4.9 g/dL (2.4-3.5); Glucose 114 mg/dL (83-110); Potassium 4.3 mmol/L (3.5-5.1); Protein, Total 8.1 g/dL (5.8-8.1); Sodium 132 mmol/L (136-145)
[2019-11-03 20:01] LABS: Anisocytosis SLIGHT = 6-15 cells (100X) (0-5/hpf); Band 2 % (5-11); Eosinophils 1 % (0-10); Lymphocytes 9 % (21-51); MDiff Complete? YES; Monocytes 5 % (0-10); Neutrophil 82 % (42-75); Platelet Morphology Comment Appears Adequate
[2019-11-03 20:05] LABS: Mean Corpuscular HGB CONC 30.7 g/dL (32.0-36.0); Mean Corpuscular Hemoglobin 27.1 pg (27.0-31.0); Mean Corpuscular Volume 88.2 fL (78.0-98.0); Platelet Count 159 thou/uL (130-400); Red Blood Cell (RBC) Count 3.69 mill/uL (4.70-6.10)
--- NOTE | 2019-11-08 11:02 | DIS ---
DATE OF ADMISSION: 10/29/2019 DATE OF DISCHARGE: 11/03/2019 The patient's date of transfer to [facility] was on 11/03/2019. BRIEF SUMMARY OF HISTORY AND PHYSICAL: The patient is a 69-year-old [place] male, who was admitted to [facility] after being seen in the emergency room with fever of unknown cause and started empirically on antibiotics. The patient had seen significant improvement, although his blood cultures and urine cultures were negative. Since he was afebrile, he was deemed appropriate to be transferred to assisted, where he could continue to improve on his overall generalized weakness and debilitation. The patient initially appeared to tolerate physical therapy and occupational therapy fairly well. He had some overall decrease in mental status, which was difficult to ascertain if this was more acute versus progressive deterioration after conversations with his via phone. The patient did show some mild improvement. He had diffuse joint aches and pains on his acute admission, which improved and again he was afebrile on Zosyn and vancomycin. After full 7 day course of IV antibiotics initiated during his acute stay, Zosyn and vancomycin was discontinued, thereafter, the patient had a recurrence of his elevated temperature and fever. There is concern for possible cholecystitis and he underwent an abdominal ultrasound after having a CT showing gallstones, which showed no obvious gross findings. After discussion with Dr. Whipple, Infectious Disease, it was deemed because of the patient's recurrent fever, his mental status changes and no exact etiology of his fever that he would be more appropriately transferred to [facility] for acute admissions. Thus, the patient was transferred on 11/03/2019. The patient was transferred to the ED via EMS. Call was made to Dr. Berta Manzo. The patient's case was discussed in detail with Dr. Manzo and the patient will be transferred to the general medicine floor. Dr. Fausto Whipple will be consulted for Infectious Disease. The patient was on IV fluids during his transfer and otherwise, his vital signs were stable to be allowed to be transferred. Job ID: [id number]
--- NOTE | 2019-11-20 01:16 | HP ---
CHIEF COMPLAINT: Diffuse debilitation and weakness after recent hospitalization. HISTORY OF PRESENT ILLNESS: The patient is a 69-year-old Latin-[place] male, who was admitted to [facility] on 10/26/2019 with fever of unknown source, requiring IV antibiotics of Zosyn and vancomycin. During his acute hospitalization, both blood and urine cultures were negative. CT scan of the chest, abdomen, and pelvis showed no acute findings. The patient underwent COVID testing, which was negative. The patient's fever resolved. His white blood count was normal, but he continued to be extremely weak, debilitated, unable to get out of bed, requiring two person transfer and thus was deemed appropriate to be transferred from acute care stay to [facility] bed for [facility]. PAST MEDICAL HISTORY: The patient has a significant past medical history of, 1. Coronary artery disease, history of lymphoma in the distant past in without recurrence. 2. History of gout. 3. History of avascular necrosis of the hip, status post hip replacement. 4. History of hypertension. PAST SURGICAL HISTORY: Includes bilateral stent placement x2 and bilateral hip replacement. MEDICATIONS: 1. Atorvastatin 80 mg daily. 2. Pantoprazole 40 mg daily. 3. Aspirin 81 mg daily. 4. Metoprolol tartrate 25 mg p.o. b.i.d. 5. Lisinopril 5 mg daily. 6. Isosorbide mononitrate 30 mg daily. 7. Allopurinol 300 mg daily. 8. Folic acid 0.8 mg daily. REVIEW OF SYSTEMS: At the time of transfer from acute [facility], the patient continued to have diffuse weakness, joint aches and pains mainly in the hips and knees and ankles, which were decreased from his acute admission stay, but still present. The patient's appetite had been fair, but improving. No recent emesis. No obvious signs of aspiration. The patient had no sore throat. He has a chronic cough, which is at its baseline per his reports. The patient denies any history of depression. He does have a fairly flat overall affect and easily confused, but is otherwise appropriate and knows that he is in the hospital and what his condition is. PHYSICAL EXAMINATION: GENERAL: Large male, alert and oriented to person and place, in no obvious distress. VITAL SIGNS: Blood pressure was 142/88, respiratory rate was 16, and pulse was 78. HEENT: Atraumatic and normocephalic. Extraocular movements are intact. Pupils are equal, round, and reactive to light and accommodation. Oropharynx, mucous membranes are moist. No exudate, discharge, or lesions. NECK: Supple. No masses palpated. CHEST: Had coarse breath sounds in the bases bilaterally. HEART: Regular rate and rhythm. ABDOMEN: Soft, nontender, and nondistended. No masses were palpated. EXTREMITIES: Showed bilateral lateral hips with old surgical scars. Fairly good passive range of motion. Diffuse weakness of the hip flexors and extensors bilaterally. Knees bilaterally showed some mild swelling without erythema, no warmth. There was good passive range of motion of the knees. There is trace edema at the ankles bilaterally, but no erythema nor warmth. LABORATORY DATA: Initial workup including blood and urine culture was negative. The patient had a CT scan of the head as well as chest, abdomen, and pelvis, which showed no signs of recurrence of lymphoma. No acute intracranial bleed nor cerebrovascular accidents. He did have some stones in his gallbladder, which was consistent with previous CT scan. ASSESSMENT AND PLAN: 1. Diffuse debilitation and weakness. This is likely related to his recent illness. The patient will continue physical therapy, occupational therapy. Hopefully, the plan is to be discharged to home with his if his strength improves, otherwise may consider long-term placement. 2. Fever of unknown cause, etiology is still unknown. Cultures have been negative. We will continue the patient on vancomycin and Zosyn and will follow if there is any recurrence of fever. 3. Decreased appetite. The patient did have gallstones in his CT scans, but it showed no significant changes from prior. He had no specific focal tenderness to his abdomen on admission. We will continue to follow. 4. Coronary artery disease, stable. Continue the patient's current medications. 5. Hypertension, controlled. 6. Disposition, as above. Plan is for the patient to be discharged to home, but if he does not show significant improvement, may have to consider long-term placement. It was discussed in detail with the patient's via phone. All her questions were answered and with the patient as best as he could understand as well. Job ID: [id number] [facility]
== END 2019-11-03 21:27 | disposition short-term general hospital (02) | DRG 948 ==
LOC: BURMED 15:37
PROVIDERS: ADMIT Family Medicine; ATTEND Family Medicine
DX: R53.81 Other malaise (principal); R53.1 Weakness; R50.9 Fever, unspecified; I25.10 Atherosclerotic heart disease of native coronary artery without angina pectoris; Z96.643 Presence of artificial hip joint, bilateral; M10.9 Gout, unspecified; I10 Essential (primary) hypertension; E78.5 Hyperlipidemia, unspecified; E78.00 Pure hypercholesterolemia, unspecified; Z74.01 Bed confinement status; Z85.71 Personal history of Hodgkin lymphoma; Z95.5 Presence of coronary angioplasty implant and graft
CPT/HCPCS: 36415; 71045; 80053; 80202; 81001; 82565; 84443; 85014; 85018; 85025; 85049; 86140; 87040; 87086; 87635; 93975; J1650; J1940; J2543; J3370; J3490; J7050; U0003

== ENCOUNTER 2020-01-01 15:28 | Inpatient (IN) | payer MEDICARE ==
[2020-01-01 17:33] VITALS: BMI 33.5
[2020-01-01] MEDS ORDERED: Acetaminophen 325 MG TAB PO PRN (18:04)
[2020-01-01] MEDS ORDERED: Bisacodyl 5 MG TAB PO PRN (18:04)
[2020-01-01] MEDS ORDERED: Bisacodyl 10 MG SUPP PR PRN ×2 (18:04→18:06)
[2020-01-01] MEDS ORDERED: Nitroglycerin 0.4 MG TAB (25 Tab Bottle) SL PRN (18:06)
[2020-01-01] MEDS ORDERED: Guaifenesin DM 100-10/5 ML UDCUP PO PRN (18:06)
[2020-01-01] MEDS ORDERED: Ondansetron ODT 4 MG TAB PO PRN (18:06)
[2020-01-01] MEDS ORDERED: Polyethylene Glycol 3350 17 GM Packet PO PRN (18:06)
[2020-01-01] MEDS ORDERED: cloNIDine 0.1 MG TAB PO PRN (18:06)
[2020-01-01] MEDS ORDERED: Acetaminophen/Codeine 30-300mg Tablet PO PRN ×2 (18:06)
[2020-01-01] MEDS ORDERED: Loperamide HCl 2 MG CAP PO PRN (18:26)
[2020-01-01] MEDS ORDERED: Mag-Al Plus 1200 MG/1200 MG/120 MG/30 ML UDCUP PO PRN (18:27)
[2020-01-01] MEDS ORDERED: Nystatin Powder 15 GM BOT TOP PRN (18:30)
[2020-01-01] MEDS: Atorvastatin Calcium 40 MG TAB PO SCH (20:39)
[2020-01-01] MEDS: Apixaban 5 MG TAB PO SCH (20:39)
[2020-01-01] MEDS: Carvedilol 3.125 MG TAB PO SCH (20:39)
[2020-01-02] MEDS: Acetaminophen 325 MG TAB PO SCH ×4 (00:01→17:34)
[2020-01-02] MEDS: Losartan Potassium 50 MG TAB PO SCH (10:11)
[2020-01-02] MEDS: Carvedilol 3.125 MG TAB PO SCH ×2 (10:11→21:33)
[2020-01-02] MEDS: Furosemide 20 MG TAB PO SCH (10:11)
[2020-01-02] MEDS: Allopurinol 100 MG TAB PO SCH (10:11)
[2020-01-02] MEDS: Apixaban 5 MG TAB PO SCH ×2 (10:11→21:33)
[2020-01-02] MEDS: Folic Acid 1 MG TAB PO SCH (10:12)
[2020-01-02] MEDS: Saccharomyces boulardii 250 MG CAP PO SCH (10:12)
[2020-01-02] MEDS: Atorvastatin Calcium 40 MG TAB PO SCH (21:33)
[2020-01-03] MEDS: Acetaminophen 325 MG TAB PO SCH ×3 (06:00→13:53)
[2020-01-03] MEDS: Furosemide 20 MG TAB PO SCH (08:27)
[2020-01-03] MEDS: Allopurinol 100 MG TAB PO SCH (08:27)
[2020-01-03] MEDS: Carvedilol 3.125 MG TAB PO SCH (08:28)
[2020-01-03] MEDS: Apixaban 5 MG TAB PO SCH (08:28)
[2020-01-03] MEDS: Folic Acid 1 MG TAB PO SCH (08:28)
[2020-01-03] MEDS: Saccharomyces boulardii 250 MG CAP PO SCH (08:28)
[2020-01-03] MEDS: Losartan Potassium 50 MG TAB PO SCH (08:32)
[2020-01-03] MEDS ORDERED: Iopamidol 370 76% 100 ML VIAL ONE (09:38)
[2020-01-03 12:09] LABS: #Basophils 0.1 thou/uL (0.0-0.2); #Eosinphils 0.1 thou/uL (0.0-0.7); #Lymphocytes 1.3 thou/uL (1.20-3.40); #Monocytes 0.5 thou/uL (0.11-0.59); %Basophils 1.5 % (0.0-1.0); %Eosinophils 1.2 % (0.0-10.0); %Lymphocytes 21.5 % (21.0-51.0); %Monocytes 8.8 % (0.0-10.0); Hemoglobin 10.2 g/dL (14.0-18.0); Mean Corpuscular HGB CONC 31.1 g/dL (32.0-36.0); Mean Corpuscular Hemoglobin 27.8 pg (27.0-31.0); Mean Corpuscular Volume 89.3 fL (78.0-98.0); Mean Platelet Volume 8.5 fL (7.4-10.4); Platelet Count 189 thou/uL (130-400); Red Blood Cell (RBC) Count 3.68 mill/uL (4.70-6.10)
--- NOTE | 2020-01-03 12:14 | CT ---
CT BRAIN NONCONTRAST: DATE: 01/03/2020 12:06 PM HISTORY: 69-year-old male with acute stroke symptoms: Right upper extremity weakness and altered mental status . Dr. Lauren verbally gave this stroke alert protocol report by telephone to Dr. Espana of [facility] at 12:11 PM 01/03/2020. COMPARISON: 12/15/2019 FINDINGS: There is no evidence of acute intra-axial or extra-axial hemorrhage. There is no midline shift or any other mass effect. There is no extra-axial fluid collection. There is ventriculomegaly. Calvarium is intact. There is diffuse brain parenchymal volume loss. There are low attenuation areas in the whi te matter. These are nonspecific, but in a patient of this age, they are probably chronic ischemic white matter changes due to microvascular atherosclerosis. No interval change overall. IMPRESSION: 1) No acute intracranial findings. 2) involutional changes and chronic ischemic white matter changes.
[2020-01-03 12:22] LABS: Bilirubin, Total 0.5 mg/dL (0.2-1.2); Calcium 8.8 mg/dL (7.8-10.44); Carbon Dioxide 25 mmol/L (23-31); Chloride 96 mmol/L (98-107); Glucose 110 mg/dL (83-110); Potassium 4.7 mmol/L (3.5-5.1); Protein, Total 7.6 g/dL (5.8-8.1); Sodium 131 mmol/L (136-145)
[2020-01-03 12:23] LABS: Albumin 3.4 g/dL (3.4-4.8); Alkaline Phosphatase 80 U/L (40-110); BUN (Urea Nitrogen) 9 mg/dL (8.4-25.7); Calc. Creatinine Clearance 130 mL/min (70-130); Estimated GFR-MDRD Greater than 90; Globulin 4.2 g/dL (2.4-3.5)
[2020-01-03 12:24] LABS: ALT (SGPT) 7 U/L (8-55); AST (SGOT) 14 U/L (5-34)
[2020-01-03 12:40] LABS: Anion Gap 16 mmol/L (10-20); CK (CPK) 29 U/L (30-200)
[2020-01-03 12:45] LABS: CKMB 0.4 ng/mL (0-6.6)
--- NOTE | 2020-01-03 13:09 | CT ---
CT ANGIOGRAM NECK WITH CONTRAST CT ANGIOGRAM BRAIN WITH CONTRAST: DATE: 01/03/2020 HISTORY: 69-year-old male with acute stroke symptoms: Sudden change in altered mental status, and right upper extremity weakness of sudden onset. Dr. Lauren verbally gave this acute stroke alert protocol report by telephone to Dr. Espana of [facility] at 1:06 PM 01/03/2020 TECHNIQUE: After IV contrast injection, arterial bolus chasing technique scan performed from AP window to vertex of head. Coronal and sagittal 3-D MIP reconstructions. FINDINGS: Right pleural effusion. Diffuse groundglass changes in bilateral upper lobes, nonspecific, but favore d to represent pulmonary interstitial edema. Aortic arch: No aneurysm or dissection. Brachiocephalic: No high-grade stenosis. Right subclavian: Focal kink at mid vessel causing some stenosis. No other focal stenosis. Left subclavian: Distal portion obscured by streak artifact from dense contrast bolus in adjacent lef t subclavian vein. Normal caliber proximal and mid vessel. Right vertebral: Diminutive but patent. Left vertebral: Dominant. No stenosis. Right common carotid: No high-grade stenosis. Left common carotid: No high-grade stenosis. Right internal carotid: Medialized, retropharyngeal carotid bulb. Atherosclerotic calcified plaque th roughout all and proximal internal carotid. No high-grade stenosis. Left internal carotid: Medialized, retropharyngeal carotid bulb. Atherosclerotic calcified plaque thr oughout all and proximal internal carotid. No high-grade stenosis. Right MCA: No M1 segment thrombus, occlusion, or high-grade stenosis. Left MCA: No M1 segment occlusion, thrombosis, or high-grade stenosis. Bilateral MICHELLE: Diminutive right A1 segment. Normal left A1 segment. Patent bilateral A2 segments. Patent bilateral posterior communicating arteries. Proximal core cleaner are patent. Dural venous sinuses: No evidence of thrombosis. IMPRESSION: 1) no M1 segment thrombus or occlusion. 2) atherosclerosis of bilateral proximal internal carotid arteries. 3) no high-grade stenosis identified in major vessels of neck. 4) pleural effusion and probable pulmonary interstitial edema.
[2020-01-03 16:56] VITALS: BP 148/88; TEMP 100
--- NOTE | 2020-01-05 15:21 | DIS ---
DATE OF ADMISSION: 01/01/2020 DATE OF DISCHARGE: 01/03/2020 DISCHARGE/TRANSFER SUMMARY DATE OF TRANSFER: 01/03/2020 ADMISSION DIAGNOSIS: Severe deconditioning after prolonged hospitalization with a complex medical history, see recent history and physical. REASON FOR TRANSFER: Acute altered mental status with fever, suspected sepsis. BRIEF SUMMARY HOSPITAL COURSE: The patient is a 69-year-old male, who was initially admitted to [facility] on 01/01/2020, after prolonged hospitalization at [facility]. See previous medical records. The patient was admitted and initiated on physical therapy and occupational therapy. He was doing well, then on the morning of 01/03/2020, the patient had acute onset of altered mental status, may have had some unilateral facial deficits, dysarthria, confusion, was found to have a fever 101. A code green was called. The patient was transferred over to the emergency room. In the emergency room, the patient underwent a CT scan, which showed no acute CT findings, but with the fever and altered mental status, there was concern for sepsis and septic encephalopathy and thus the patient was deemed appropriate to be transferred back to [facility] in [place] for acute care status. The hospitalist team accepted the patient. The patient will be transferred from the emergency room in [place] to [place] for acute admission. Job ID: [id number]
--- NOTE | 2020-01-08 03:03 | HP ---
CHIEF COMPLAINT: Reason for transfer to [facility] is deconditioning. HISTORY OF PRESENT ILLNESS: The patient is extremely pleasant 69-year-old with a greater than 6-week history complicated by multiple hospital admissions. Most recently, the patient was admitted to [facility] on December 15, 2019. At that time, he was found to have pneumonia with Klebsiella bacteremia as well as ascending cholangitis. The patient developed acute post hemorrhagic anemia as well as combined systolic and diastolic heart failure related to cardiomyopathy. The patient had an episode of ventricular tachycardia as well. Underwent cardiac catheterization and stenting with a 60% LAD stenosis. His hospital course was also complicated by acute pancreatitis with ascending cholangitis and choledocholithiasis requiring cholecystectomy. The patient is severely deconditioned and has been unable to get out of bed for more than 6 weeks due to his frequent hospitalizations and multiple medical conditions and is transferred from [facility] to [facility] for rehabilitation. Of note, the patient also had a CT scan during his last hospitalization for possible PE and he is on Eliquis. PAST MEDICAL HISTORY: 1. Ventricular tachycardia, on a LifeVest. 2. History of pneumonia with Klebsiella bacteremia, resolved. 3. History of ascending cholangitis, status post cholecystectomy. 4. Combined systolic and diastolic heart failure. 5. Cardiomyopathy. 6. Coronary artery disease, status post PCI. 7. Hypertension. 8. Dyslipidemia. 9. Acute pancreatitis, resolved. 10. History of GI bleed with anemia. 11. Possible PE. 12. History of Hodgkin lymphoma in the past, stable. 13. History of dementia. 14. Inability to walk for the last 6 weeks. MEDICATIONS: 1. Tylenol No.3 1-2 p.o. q.4 hours p.r.n. pain. 2. Eliquis 5 mg p.o. b.i.d. 3. Aspirin 81 mg daily. 4. Lipitor 40 mg daily. 5. Coreg 3.125 mg p.o. b.i.d. 6. Lasix 20 mg daily. 7. Cozaar 25 mg daily. 8. Protonix 40 mg daily. 9. Florastor 250 mg daily. 10. Flagyl 500 mg p.o. t.i.d. 11. Folic acid 1 mg daily. 12. Allopurinol 300 mg daily. ALLERGIES: CEPHALEXIN. CODE STATUS: The patient is DNR by his wishes. DIET: 1500 calorie, ADA, diabetic, fluid-restricted diet. REVIEW OF SYSTEMS: At this time, the patient denies any increase in symptoms. He says his appetite has been poor, but denies abdominal pain. The patient had no vomiting or diarrhea. Has had some occasional loose stools, but none recently. The patient denies any URI-like symptoms. He denies any significant cough. No chest pain currently, nor shortness of breath, but he is severely deconditioned and unable to ambulate. The patient denies depression, but does say he would like to go back home, which has kept him down lately emotionally. The patient denies any rash. He is unsure if he has had any recent weight loss or weight gain. PHYSICAL EXAMINATION: GENERAL: Elderly male, in no obvious distress, cooperative, but easily confused. HEENT: Atraumatic, normocephalic. EOMs were intact. NECK: Supple. No mass palpated. CHEST: Had rales at the bases bilaterally. HEART: Regular rate and rhythm. ABDOMEN: Showed well-healed healing scars from recent cholecystectomy laparoscopically. Abdomen is otherwise soft, nontender. EXTREMITIES: Showed no cyanosis, clubbing, or edema. ASSESSMENT AND PLAN: 1. Severe deconditioning. The patient has not been ambulatory for 6 weeks and apparently with his initial hospitalization in November, he had not been able to ambulate at home for several weeks. We will initiate physical therapy and occupational therapy. The patient has also had some dysphagia. We will obtain a Speech Therapy eval to ensure he is not having any silent aspiration. 2. Ventricular tachycardia. Patient is on a LifeVest. He underwent a recent percutaneous transluminal coronary angioplasty with a stenting. He is on Eliquis b.i.d. We will continue with LifeVest and follow up with Cardiology. 3. Suspected recent pulmonary embolism. Patient is on Eliquis. He did have some anemia in his recent hospitalization, I do not believe he has required a blood transfusion. We will need to follow his hemoglobin and hematocrit. May need iron supplementation. 4. Recent bacteremia, this is resolved. We will continue to follow. 5. Hypertension. Continue the patient on his current medications. 6. Combined systolic and diastolic heart failure. The patient is on Lasix. We will continue to follow. 7. History of aortic stenosis. This is being treated medically. 8. Hyperlipidemia. We will continue patient on routine anti-hyperlipidemia agents. DISPOSITION: Patient is a DNR code status. He does want to go back home if he is able to ambulate. If not, he may need long-term placement. Job ID: [id number]
== END 2020-01-03 15:30 | disposition short-term general hospital (02) | DRG 871 ==
LOC: BURMED 17:00
PROVIDERS: ADMIT Family Medicine; ATTEND Family Medicine
DX: A41.9 Sepsis, unspecified organism (principal); G93.41 Metabolic encephalopathy; I47.1 Supraventricular tachycardia; I50.42 Chronic combined systolic (congestive) and diastolic (congestive) heart failure; I42.9 Cardiomyopathy, unspecified; Z66 Do not resuscitate; R53.81 Other malaise; R13.10 Dysphagia, unspecified; I25.10 Atherosclerotic heart disease of native coronary artery without angina pectoris; F03.90 Unspecified dementia, unspecified severity, without behavioral disturbance, psychotic disturbance, mood disturbance, and anxiety; I11.0 Hypertensive heart disease with heart failure; E78.5 Hyperlipidemia, unspecified; R47.1 Dysarthria and anarthria; Z95.5 Presence of coronary angioplasty implant and graft; Z86.711 Personal history of pulmonary embolism; Z85.72 Personal history of non-Hodgkin lymphomas; Z79.82 Long term (current) use of aspirin; Z88.1 Allergy status to other antibiotic agents; Z90.49 Acquired absence of other specified parts of digestive tract
CPT/HCPCS: 36416; 70450; 70496; 70498; 80053; 82550; 82553; 83605; 84484; 85025; Q9967

== ENCOUNTER 2020-01-03 12:46 | Emergency (ER) | payer MEDICARE ==
[2020-01-03] MEDS ORDERED: Ketorolac Tromethamine 30 MG/ML VIAL ONE (14:25)
--- NOTE | 2020-01-03 18:29 | RAD ---
PORTABLE CHEST: 01/03/20 An AP portable film at 1318 is compared with a 12/15/19 study. The depth of inspiration is very shallow which crowds the lung markings and also makes seeing the low er lobes very difficult. In spite of this, there appears to be some congestion of the vessels and pro minence of the interstitium. The finding most likely represent congestive change, though an infectiou s process is not strictly ruled out. There probably is a little bit of pleural fluid bilaterally. The heart is upper normal in size. IMPRESSION: Vascular prominence and interstitial prominence. Edema is favored, but infectious process is also in the differential. POS: HOME
== END 2020-01-03 15:35 | disposition short-term general hospital (02) ==
LOC: BURERS 12:46
DX: A41.9 Sepsis, unspecified organism (principal); I25.10 Atherosclerotic heart disease of native coronary artery without angina pectoris; M10.9 Gout, unspecified; E78.5 Hyperlipidemia, unspecified; I10 Essential (primary) hypertension; F17.220 Nicotine dependence, chewing tobacco, uncomplicated
CPT/HCPCS: 71045; 87040; 96361; 96365; 96375; J1885; J1956; J3370

== ENCOUNTER 2020-01-07 16:15 | Inpatient (IN) | payer MEDICARE ==
[2020-01-07] MEDS ORDERED: Ondansetron ODT 4 MG TAB PO PRN (19:42)
[2020-01-07] MEDS ORDERED: Bisacodyl 10 MG SUPP PR PRN ×2 (19:42→19:45)
[2020-01-07] MEDS ORDERED: Senokot S 8.6-50 MG TAB PO PRN (19:42)
[2020-01-07] MEDS ORDERED: Nystatin Cream 15 GM TUBE TOP PRN (19:45)
[2020-01-07] MEDS ORDERED: Polyethylene Glycol 3350 17 GM Packet PO PRN (19:45)
[2020-01-07] MEDS ORDERED: Nitroglycerin 0.4 MG TAB (25 Tab Bottle) SL PRN (19:45)
[2020-01-07] MEDS ORDERED: Guaifenesin DM 100-10/5 ML UDCUP PO PRN (19:45)
[2020-01-07] MEDS ORDERED: Acetaminophen 325 MG TAB PO PRN (19:45)
[2020-01-07] MEDS: Atorvastatin Calcium 40 MG TAB PO SCH (21:34)
[2020-01-07] MEDS: Famotidine 20 MG TAB PO SCH (21:34)
[2020-01-07] MEDS: Apixaban 5 MG TAB PO SCH (21:34)
[2020-01-07] MEDS: Carvedilol 3.125 MG TAB PO SCH (21:34)
--- NOTE | 2020-01-08 02:32 | HP ---
CHIEF COMPLAINT/REASON FOR ADMISSION: Deconditioning. HISTORY OF PRESENT ILLNESS: Patient is an extremely pleasant 69-year-old male, who had a prolonged history of illness over the last two months with frequent admissions. Patient recently had a 3-week stay at [facility], admitted on 12/15/2019 and transferred to [facility] on 01/01/2020. After about 48 hours, patient had an episode of acute febrile illness with altered mental status requiring Code Green. Patient was seen in the emergency room and transferred to [facility] for evaluation. At [facility], patient had both urine and blood cultures which were negative. Imaging study, including CT scan of the abdomen and pelvis was negative. Patient was diagnosed with acute metabolic encephalopathy possibly due to a viral illness, hyponatremia, hypomagnesemia, and iron deficiency. During his hospital course, he was given IV fluids. He was afebrile for four days. He had a COVID test which was negative. He was found to be iron deficient with iron level of 30, and magnesium was low at 1.4, and these were both supplemented. Since the patient had been afebrile for four days without signs of illness other than his baseline status, he was transferred back to [facility] for further rehabilitation. PAST MEDICAL HISTORY: 1. Status post cholecystectomy approximately one month ago; ventricular tachycardia, for which the patient has continued LifeVest; pneumonia on recent hospitalization with Klebsiella bacteremia; ascending cholangitis, status post cholecystectomy; aortic stenosis, treated medically; coronary artery disease, status post PCI on his previous acute admission; acute posthemorrhagic anemia; cardiomyopathy, combined systolic and diastolic heart failure; hypertension; hyperlipidemia; and history of acute pancreatitis. 2. History of GI bleeding. 3. History of Hodgkin's disease, in remission for approximately 20 years. MEDICATIONS: Include allopurinol 300 mg daily for gout, folic acid 1 mg daily, apixaban 5 mg p.o. b.i.d., Lipitor 40 mg at bedtime, Coreg 3.125 mg b.i.d., iron sulfate 325 mg p.o. daily, furosemide 20 mg daily, Cozaar 25 mg daily, Protonix 40 mg daily, Florastor 250 mg daily, Robitussin p.r.n. cough, Maalox p.r.n., clonidine p.r.n. hypertension, Tylenol 650 mg p.o. q.6 hours p.r.n. pain, and Zofran p.r.n. nausea. SOCIAL HISTORY: Prior to the patient's frequent episodes of hospitalizations over the last two months, patient had been living in a home but had several months of progressive deterioration in his status. There was a concern for possible history of CVA versus dementia in the recent past. The patient has been nonambulatory for the last two months and had recently been admitted to rehab center, followed by a group home at [facility]. Patient is currently not ambulatory, needs assistance with transfers and general hygiene. Patient has a history of distant past of smoking and social alcohol use only and no other social drug use. REVIEW OF SYSTEMS: Patient presently says his appetite is poor, but denies nausea or vomiting. He reports intermittent episodes of constipation, none presently. Patient denies any dysuria or hematuria. He reports diffuse muscle aches and pains for the last two months. Patient does not report any weakness that is acute, but have progressive decreased ability to ambulate. Patient denied any URI-like symptoms. He has occasional cough but denies chest pain or shortness of breath. Patient denies any rashes. Patient denies depression other than the fact that he has had multiple hospitalizations and would like to go home. PHYSICAL EXAMINATION: GENERAL: White male, cooperative, but easily confused, in no obvious distress. VITAL SIGNS: Blood pressure 148/68, respiratory rate was 16, and pulse was 82. HEENT: Extraocular movements were intact. Oropharynx was clear. NECK: Supple. CHEST: Clear auscultation bilaterally. HEART: Regular rate and rhythm. ABDOMEN: Soft. A well-healed scar from his recent laparoscopic cholecystectomy was noted. Nontender. Bowel sounds were positive. EXTREMITIES: Showed no cyanosis, clubbing, or edema. Extremities looked pale. Patient had no focal joint tenderness noted. ASSESSMENT: Severe deconditioning. Patient was initially hospitalized in November at [facility]. Since then, he has been nonambulatory. He has had prolonged stay in [facility] for two different hospitalizations with a course of rehab and group home at [facility] in-between those two hospitalizations. Most recently, patient had an episode of fever with altered mental status, which etiology was unclear. PLAN: 1. To initiate physical therapy and occupational therapy. Speech Therapy will be consulted since the patient had a history of dysphagia. 2. Supraventricular tachycardia. Patient will follow up with front of house manager. He underwent CHAR FILTER TANK TENDER HEAD in his hospitalization early in December and had stent placement. He will continue with LifeVest for now. 3. History of sepsis with Klebsiella bacteremia. Patient has had negative blood cultures. He is off all antibiotics and has been afebrile for multiple days. 4. History of ascending cholangitis, status post cholecystectomy. Patient appears to be recovering. Advance diet as he tolerates. 5. Hypertension, controlled. Continue current medications. 6. History of Hodgkin's lymphoma, distant past. No sign of recurrence. DISPOSITION: Patient would like to go back to home. He is nonambulatory. His goal would be to walk. He has not walked in the last two months. We will see how he responds to physical therapy and occupational therapy. Patient is on Eliquis, status post pulmonary emboli on one of his hospitalizations in the last two months. He will not need any further anticoagulation. Job ID: [id number]
[2020-01-08] MEDS: Folic Acid 1 MG TAB PO SCH (08:14)
[2020-01-08] MEDS: Losartan Potassium 50 MG TAB PO SCH (08:14)
[2020-01-08] MEDS: Ferrous Sulfate 325 MG TAB PO SCH (08:14)
[2020-01-08] MEDS: Saccharomyces boulardii 250 MG CAP PO SCH (08:14)
[2020-01-08] MEDS: Famotidine 20 MG TAB PO SCH ×2 (08:14→21:09)
[2020-01-08] MEDS: Allopurinol 100 MG TAB PO SCH (08:14)
[2020-01-08] MEDS: Apixaban 5 MG TAB PO SCH ×2 (08:14→21:09)
[2020-01-08] MEDS: Carvedilol 3.125 MG TAB PO SCH ×2 (08:15→21:09)
[2020-01-08] MEDS: Furosemide 20 MG TAB PO SCH (08:15)
[2020-01-08] MEDS: Atorvastatin Calcium 40 MG TAB PO SCH (21:09)
[2020-01-09] MEDS: Allopurinol 100 MG TAB PO SCH (08:32)
[2020-01-09] MEDS: Saccharomyces boulardii 250 MG CAP PO SCH (08:32)
[2020-01-09] MEDS: Apixaban 5 MG TAB PO SCH ×2 (08:33→21:30)
[2020-01-09] MEDS: Ferrous Sulfate 325 MG TAB PO SCH (08:33)
[2020-01-09] MEDS: Carvedilol 3.125 MG TAB PO SCH ×2 (08:33→21:30)
[2020-01-09] MEDS: Famotidine 20 MG TAB PO SCH ×2 (08:33→21:30)
[2020-01-09] MEDS: Folic Acid 1 MG TAB PO SCH (08:33)
[2020-01-09] MEDS: Furosemide 20 MG TAB PO SCH (08:33)
[2020-01-09] MEDS: Losartan Potassium 50 MG TAB PO SCH (08:35)
[2020-01-09] MEDS: Acetaminophen 325 MG TAB PO PRN (09:35)
[2020-01-09] MEDS: Atorvastatin Calcium 40 MG TAB PO SCH (21:29)
[2020-01-10] MEDS: Ferrous Sulfate 325 MG TAB PO SCH (08:52)
[2020-01-10] MEDS: Saccharomyces boulardii 250 MG CAP PO SCH (08:53)
[2020-01-10] MEDS: Allopurinol 100 MG TAB PO SCH (08:54)
[2020-01-10] MEDS: Apixaban 5 MG TAB PO SCH ×2 (08:54→20:18)
[2020-01-10] MEDS: Losartan Potassium 50 MG TAB PO SCH (08:54)
[2020-01-10] MEDS: Famotidine 20 MG TAB PO SCH ×2 (08:54→20:18)
[2020-01-10] MEDS: Carvedilol 3.125 MG TAB PO SCH ×2 (08:54→20:18)
[2020-01-10] MEDS: Furosemide 20 MG TAB PO SCH (08:56)
[2020-01-10] MEDS: Folic Acid 1 MG TAB PO SCH (08:56)
[2020-01-10] MEDS: Atorvastatin Calcium 40 MG TAB PO SCH (20:18)
[2020-01-11] MEDS: Furosemide 20 MG TAB PO SCH (08:32)
[2020-01-11] MEDS: Ferrous Sulfate 325 MG TAB PO SCH (08:32)
[2020-01-11] MEDS: Saccharomyces boulardii 250 MG CAP PO SCH (08:32)
[2020-01-11] MEDS: Apixaban 5 MG TAB PO SCH ×2 (08:32→21:47)
[2020-01-11] MEDS: Famotidine 20 MG TAB PO SCH ×2 (08:32→21:43)
[2020-01-11] MEDS: Losartan Potassium 50 MG TAB PO SCH (08:33)
[2020-01-11] MEDS: Allopurinol 100 MG TAB PO SCH (08:33)
[2020-01-11] MEDS: Folic Acid 1 MG TAB PO SCH (08:34)
[2020-01-11] MEDS: Carvedilol 3.125 MG TAB PO SCH ×2 (08:34→21:43)
[2020-01-11] MEDS: Atorvastatin Calcium 40 MG TAB PO SCH (21:43)
[2020-01-12] MEDS: Carvedilol 3.125 MG TAB PO SCH ×2 (09:10→20:58)
[2020-01-12] MEDS: Allopurinol 100 MG TAB PO SCH (09:10)
[2020-01-12] MEDS: Saccharomyces boulardii 250 MG CAP PO SCH (09:10)
[2020-01-12] MEDS: Ferrous Sulfate 325 MG TAB PO SCH (09:11)
[2020-01-12] MEDS: Losartan Potassium 50 MG TAB PO SCH (09:11)
[2020-01-12] MEDS: Furosemide 20 MG TAB PO SCH (09:12)
[2020-01-12] MEDS: Famotidine 20 MG TAB PO SCH ×2 (09:12→20:58)
[2020-01-12] MEDS: Folic Acid 1 MG TAB PO SCH (09:12)
[2020-01-12] MEDS: Apixaban 5 MG TAB PO SCH ×2 (09:12→20:58)
[2020-01-12] MEDS: Atorvastatin Calcium 40 MG TAB PO SCH (20:58)
[2020-01-13] MEDS: Famotidine 20 MG TAB PO SCH ×2 (09:37→20:49)
[2020-01-13] MEDS: Saccharomyces boulardii 250 MG CAP PO SCH (09:37)
[2020-01-13] MEDS: Losartan Potassium 50 MG TAB PO SCH (09:37)
[2020-01-13] MEDS: Ferrous Sulfate 325 MG TAB PO SCH (09:38)
[2020-01-13] MEDS: Allopurinol 100 MG TAB PO SCH (09:38)
[2020-01-13] MEDS: Folic Acid 1 MG TAB PO SCH (09:38)
[2020-01-13] MEDS: Apixaban 5 MG TAB PO SCH ×2 (09:38→20:49)
[2020-01-13] MEDS: Furosemide 20 MG TAB PO SCH (09:38)
[2020-01-13] MEDS: Carvedilol 3.125 MG TAB PO SCH ×2 (09:39→20:49)
[2020-01-13] MEDS: Acetaminophen 325 MG TAB PO PRN (09:42)
[2020-01-13] MEDS: Mag-Al Plus 1200 MG/1200 MG/120 MG/30 ML UDCUP PO PRN (09:43)
[2020-01-13] MEDS: Atorvastatin Calcium 40 MG TAB PO SCH (20:49)
[2020-01-14] MEDS: Mag-Al Plus 1200 MG/1200 MG/120 MG/30 ML UDCUP PO PRN (08:19)
[2020-01-14] MEDS: Famotidine 20 MG TAB PO SCH ×2 (08:21→20:05)
[2020-01-14] MEDS: Apixaban 5 MG TAB PO SCH ×2 (08:21→20:05)
[2020-01-14] MEDS: Furosemide 20 MG TAB PO SCH (08:21)
[2020-01-14] MEDS: Saccharomyces boulardii 250 MG CAP PO SCH (08:22)
[2020-01-14] MEDS: Ferrous Sulfate 325 MG TAB PO SCH (08:22)
[2020-01-14] MEDS: Losartan Potassium 50 MG TAB PO SCH (08:23)
[2020-01-14] MEDS: Allopurinol 100 MG TAB PO SCH (08:23)
[2020-01-14] MEDS: Folic Acid 1 MG TAB PO SCH (08:24)
[2020-01-14] MEDS: Carvedilol 3.125 MG TAB PO SCH ×2 (08:25→20:05)
[2020-01-14] MEDS: Atorvastatin Calcium 40 MG TAB PO SCH (20:05)
[2020-01-15] MEDS: Saccharomyces boulardii 250 MG CAP PO SCH (09:04)
[2020-01-15] MEDS: Losartan Potassium 50 MG TAB PO SCH (09:04)
[2020-01-15] MEDS: Famotidine 20 MG TAB PO SCH ×2 (09:04→20:24)
[2020-01-15] MEDS: Apixaban 5 MG TAB PO SCH ×2 (09:04→20:24)
[2020-01-15] MEDS: Folic Acid 1 MG TAB PO SCH (09:04)
[2020-01-15] MEDS: Ferrous Sulfate 325 MG TAB PO SCH (09:04)
[2020-01-15] MEDS: Allopurinol 100 MG TAB PO SCH (09:04)
[2020-01-15] MEDS: Furosemide 20 MG TAB PO SCH (09:05)
[2020-01-15] MEDS: Carvedilol 3.125 MG TAB PO SCH ×2 (09:05→20:24)
[2020-01-15] MEDS: Atorvastatin Calcium 40 MG TAB PO SCH (20:24)
[2020-01-16] MEDS: Famotidine 20 MG TAB PO SCH ×2 (08:36→20:27)
[2020-01-16] MEDS: Saccharomyces boulardii 250 MG CAP PO SCH (08:36)
[2020-01-16] MEDS: Ferrous Sulfate 325 MG TAB PO SCH (08:37)
[2020-01-16] MEDS: Allopurinol 100 MG TAB PO SCH (08:37)
[2020-01-16] MEDS: Losartan Potassium 50 MG TAB PO SCH (08:38)
[2020-01-16] MEDS: Furosemide 20 MG TAB PO SCH (08:38)
[2020-01-16] MEDS: Carvedilol 3.125 MG TAB PO SCH ×2 (08:38→20:27)
[2020-01-16] MEDS: Folic Acid 1 MG TAB PO SCH (08:39)
[2020-01-16] MEDS: Apixaban 5 MG TAB PO SCH ×2 (08:39→20:26)
[2020-01-16] MEDS: Ondansetron ODT 4 MG TAB PO PRN (13:15)
[2020-01-16] MEDS: Atorvastatin Calcium 40 MG TAB PO SCH (20:27)
[2020-01-17] MEDS: Acetaminophen 325 MG TAB PO PRN (05:49)
[2020-01-17] MEDS: Famotidine 20 MG TAB PO SCH ×2 (08:27→21:28)
[2020-01-17] MEDS: Carvedilol 3.125 MG TAB PO SCH ×2 (08:28→21:28)
[2020-01-17] MEDS: Saccharomyces boulardii 250 MG CAP PO SCH (08:28)
[2020-01-17] MEDS: Ferrous Sulfate 325 MG TAB PO SCH (08:28)
[2020-01-17] MEDS: Apixaban 5 MG TAB PO SCH ×2 (08:28→21:28)
[2020-01-17] MEDS: Allopurinol 100 MG TAB PO SCH (08:29)
[2020-01-17] MEDS: Folic Acid 1 MG TAB PO SCH (08:29)
[2020-01-17] MEDS: Losartan Potassium 50 MG TAB PO SCH (08:29)
[2020-01-17] MEDS: Furosemide 20 MG TAB PO SCH (08:30)
[2020-01-17] MEDS: Atorvastatin Calcium 40 MG TAB PO SCH (21:28)
[2020-01-18] MEDS: Apixaban 5 MG TAB PO SCH ×2 (08:35→20:48)
[2020-01-18] MEDS: Famotidine 20 MG TAB PO SCH ×2 (08:35→20:48)
[2020-01-18] MEDS: Saccharomyces boulardii 250 MG CAP PO SCH (08:35)
[2020-01-18] MEDS: Furosemide 20 MG TAB PO SCH (08:36)
[2020-01-18] MEDS: Carvedilol 3.125 MG TAB PO SCH ×2 (08:36→20:48)
[2020-01-18] MEDS: Folic Acid 1 MG TAB PO SCH (08:36)
[2020-01-18] MEDS: Ferrous Sulfate 325 MG TAB PO SCH (08:36)
[2020-01-18] MEDS: Allopurinol 100 MG TAB PO SCH (08:36)
[2020-01-18] MEDS: Losartan Potassium 50 MG TAB PO SCH (08:37)
[2020-01-18] MEDS: Acetaminophen 325 MG TAB PO PRN (10:13)
[2020-01-18] MEDS: Ondansetron ODT 4 MG TAB PO PRN (11:17)
[2020-01-18] MEDS: Atorvastatin Calcium 40 MG TAB PO SCH (20:48)
[2020-01-19] MEDS: Ondansetron ODT 4 MG TAB PO PRN (08:21)
[2020-01-19] MEDS: Ferrous Sulfate 325 MG TAB PO SCH (08:42)
[2020-01-19] MEDS: Famotidine 20 MG TAB PO SCH ×2 (08:42→20:24)
[2020-01-19] MEDS: Allopurinol 100 MG TAB PO SCH (08:42)
[2020-01-19] MEDS: Furosemide 20 MG TAB PO SCH (08:43)
[2020-01-19] MEDS: Losartan Potassium 50 MG TAB PO SCH (08:43)
[2020-01-19] MEDS: Carvedilol 3.125 MG TAB PO SCH ×2 (08:43→20:24)
[2020-01-19] MEDS: Apixaban 5 MG TAB PO SCH ×2 (08:43→20:24)
[2020-01-19] MEDS: Saccharomyces boulardii 250 MG CAP PO SCH (08:43)
[2020-01-19] MEDS: Folic Acid 1 MG TAB PO SCH (08:43)
[2020-01-19] MEDS: Atorvastatin Calcium 40 MG TAB PO SCH (20:24)
[2020-01-20] MEDS: Famotidine 20 MG TAB PO SCH ×2 (09:55→20:18)
[2020-01-20] MEDS: Losartan Potassium 50 MG TAB PO SCH (09:55)
[2020-01-20] MEDS: Apixaban 5 MG TAB PO SCH ×2 (09:56→20:17)
[2020-01-20] MEDS: Saccharomyces boulardii 250 MG CAP PO SCH (09:56)
[2020-01-20] MEDS: Ferrous Sulfate 325 MG TAB PO SCH (09:56)
[2020-01-20] MEDS: Furosemide 20 MG TAB PO SCH (09:56)
[2020-01-20] MEDS: Folic Acid 1 MG TAB PO SCH (09:56)
[2020-01-20] MEDS: Allopurinol 100 MG TAB PO SCH (09:56)
[2020-01-20] MEDS: Carvedilol 3.125 MG TAB PO SCH ×2 (09:57→20:17)
[2020-01-20] MEDS: Atorvastatin Calcium 40 MG TAB PO SCH (20:17)
[2020-01-21] MEDS: Allopurinol 100 MG TAB PO SCH (08:45)
[2020-01-21] MEDS: Apixaban 5 MG TAB PO SCH ×2 (08:45→20:48)
[2020-01-21] MEDS: Folic Acid 1 MG TAB PO SCH (08:45)
[2020-01-21] MEDS: Losartan Potassium 50 MG TAB PO SCH (08:45)
[2020-01-21] MEDS: Famotidine 20 MG TAB PO SCH ×2 (08:45→20:48)
[2020-01-21] MEDS: Furosemide 20 MG TAB PO SCH (08:45)
[2020-01-21] MEDS: Carvedilol 3.125 MG TAB PO SCH ×2 (08:46→20:48)
[2020-01-21] MEDS: Ferrous Sulfate 325 MG TAB PO SCH (08:46)
[2020-01-21] MEDS: Saccharomyces boulardii 250 MG CAP PO SCH (08:46)
[2020-01-21] MEDS: Atorvastatin Calcium 40 MG TAB PO SCH (20:48)
[2020-01-22] MEDS: Apixaban 5 MG TAB PO SCH ×2 (07:50→20:50)
[2020-01-22] MEDS: Allopurinol 100 MG TAB PO SCH (07:50)
[2020-01-22] MEDS: Carvedilol 3.125 MG TAB PO SCH ×2 (07:50→20:50)
[2020-01-22] MEDS: Famotidine 20 MG TAB PO SCH ×2 (07:50→20:50)
[2020-01-22] MEDS: Furosemide 20 MG TAB PO SCH (07:51)
[2020-01-22] MEDS: Ferrous Sulfate 325 MG TAB PO SCH (07:51)
[2020-01-22] MEDS: Losartan Potassium 50 MG TAB PO SCH (07:51)
[2020-01-22] MEDS: Folic Acid 1 MG TAB PO SCH (07:51)
[2020-01-22] MEDS: Saccharomyces boulardii 250 MG CAP PO SCH (07:52)
[2020-01-22] MEDS: Ondansetron ODT 4 MG TAB PO PRN (16:30)
[2020-01-22] MEDS: Atorvastatin Calcium 40 MG TAB PO SCH (20:51)
[2020-01-23] MEDS: Furosemide 20 MG TAB PO SCH (07:31)
[2020-01-23] MEDS: Allopurinol 100 MG TAB PO SCH (07:31)
[2020-01-23] MEDS: Famotidine 20 MG TAB PO SCH ×2 (07:31→21:37)
[2020-01-23] MEDS: Carvedilol 3.125 MG TAB PO SCH ×2 (07:32→21:37)
[2020-01-23] MEDS: Losartan Potassium 50 MG TAB PO SCH (07:32)
[2020-01-23] MEDS: Folic Acid 1 MG TAB PO SCH (07:32)
[2020-01-23] MEDS: Apixaban 5 MG TAB PO SCH ×2 (07:32→21:37)
[2020-01-23] MEDS: Saccharomyces boulardii 250 MG CAP PO SCH (07:32)
[2020-01-23] MEDS: Ferrous Sulfate 325 MG TAB PO SCH (07:33)
[2020-01-23] MEDS: Acetaminophen 325 MG TAB PO PRN (07:35)
[2020-01-23 18:39] LABS: Hemoglobin 9.4 g/dL (14.0-18.0); Mean Corpuscular HGB CONC 30.2 g/dL (32.0-36.0); Mean Corpuscular Hemoglobin 27.5 pg (27.0-31.0); Mean Corpuscular Volume 91.1 fL (78.0-98.0); Mean Platelet Volume 9.4 fL (7.4-10.4); Platelet Count 162 thou/uL (130-400); RBC Distribution Width 18.7 % (11.5-14.5); Red Blood Cell (RBC) Count 3.42 mill/uL (4.70-6.10); White Blood Cell (WBC) Count 5.4 thou/uL (4.8-10.8)
[2020-01-23 18:42] LABS: ALT (SGPT) 12 U/L (8-55); AST (SGOT) 13 U/L (5-34); Albumin 3.4 g/dL (3.4-4.8); Alkaline Phosphatase 82 U/L (40-110); Anion Gap 16 mmol/L (10-20); BUN (Urea Nitrogen) 13 mg/dL (8.4-25.7); Bilirubin, Total 0.8 mg/dL (0.2-1.2); Calc. Creatinine Clearance 109 mL/min (70-130); Calcium 8.7 mg/dL (7.8-10.44); Carbon Dioxide 26 mmol/L (23-31); Chloride 95 mmol/L (98-107); Estimated GFR-MDRD Greater than 90; Globulin 3.9 g/dL (2.4-3.5); Glucose 115 mg/dL (83-110); Potassium 3.8 mmol/L (3.5-5.1); Protein, Total 7.3 g/dL (5.8-8.1); Sodium 133 mmol/L (136-145)
[2020-01-23 18:44] LABS: #Basophils 0.1 thou/uL (0.0-0.2); #Eosinphils 0.1 thou/uL (0.0-0.7); #Monocytes 0.5 thou/uL (0.11-0.59); #Neutrophils 2.7 thou/uL (1.40-6.50); %Basophils 1.1 % (0.0-1.0); %Eosinophils 2.3 % (0.0-10.0); %Lymphocytes 36.9 % (21.0-51.0); %Monocytes 9.5 % (0.0-10.0); %Neutrophils 50.2 % (42.0-75.0); Anisocytosis SLIGHT = 6-15 cells (100X) (0-5/hpf); Elliptocytes SLIGHT = 2-5 cells (100X) (0-1/hpf); MDiff Complete? YES; Poikilocytosis SLIGHT = 6-15 cells (100X) (0-5/hpf); Tear Drops SLIGHT = 2-5 cells (100X) (0-1/hpf)
--- NOTE | 2020-01-23 19:21 | RAD ---
RIGHT KNEE 4 VIEWS: Date: 01/23/2020 Moderate arthritic changes are present with substantial lateral compartment narrowing and some osteop hytes. A small joint effusion was indicated. Patellofemoral osteophytes are present as well. There ar e advanced arteriosclerotic changes. 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 IMPRESSION: 1. Moderate arthritic change, predominantly lateral compartment and patellofemoral joint. 2. Small joint effusion. 3. Substantial arteriosclerosis. 4. 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 POS: HOME
[2020-01-23] MEDS: Atorvastatin Calcium 40 MG TAB PO SCH (21:37)
[2020-01-24] MEDS: Famotidine 20 MG TAB PO SCH ×2 (08:39→21:00)
[2020-01-24] MEDS: Apixaban 5 MG TAB PO SCH ×2 (08:39→21:00)
[2020-01-24] MEDS: Losartan Potassium 50 MG TAB PO SCH (08:39)
[2020-01-24] MEDS: Saccharomyces boulardii 250 MG CAP PO SCH (08:39)
[2020-01-24] MEDS: Carvedilol 3.125 MG TAB PO SCH ×2 (08:40→21:01)
[2020-01-24] MEDS: Folic Acid 1 MG TAB PO SCH (08:40)
[2020-01-24] MEDS: Furosemide 20 MG TAB PO SCH (08:40)
[2020-01-24] MEDS: Allopurinol 100 MG TAB PO SCH (08:40)
[2020-01-24] MEDS: Ferrous Sulfate 325 MG TAB PO SCH (08:41)
[2020-01-24 12:26] VITALS: BMI 30.4
[2020-01-24] MEDS: Atorvastatin Calcium 40 MG TAB PO SCH (21:00)
[2020-01-24] MEDS: Acetaminophen 325 MG TAB PO PRN (21:01)
[2020-01-25] MEDS: Famotidine 20 MG TAB PO SCH ×2 (09:11→21:00)
[2020-01-25] MEDS: Losartan Potassium 50 MG TAB PO SCH (09:12)
[2020-01-25] MEDS: Saccharomyces boulardii 250 MG CAP PO SCH (09:12)
[2020-01-25] MEDS: Allopurinol 100 MG TAB PO SCH (09:13)
[2020-01-25] MEDS: Carvedilol 3.125 MG TAB PO SCH ×2 (09:13→21:11)
[2020-01-25] MEDS: Folic Acid 1 MG TAB PO SCH (09:13)
[2020-01-25] MEDS: Furosemide 20 MG TAB PO SCH (09:13)
[2020-01-25] MEDS: Ferrous Sulfate 325 MG TAB PO SCH (09:14)
[2020-01-25] MEDS: Apixaban 5 MG TAB PO SCH ×2 (09:14→21:11)
[2020-01-25] MEDS: Acetaminophen 325 MG TAB PO PRN ×2 (09:16→21:13)
[2020-01-25] MEDS: Ondansetron ODT 4 MG TAB PO PRN (19:33)
[2020-01-25] MEDS: Atorvastatin Calcium 40 MG TAB PO SCH (21:11)
[2020-01-26] MEDS: Furosemide 20 MG TAB PO SCH (08:12)
[2020-01-26] MEDS: Saccharomyces boulardii 250 MG CAP PO SCH (08:12)
[2020-01-26] MEDS: Allopurinol 100 MG TAB PO SCH (08:12)
[2020-01-26] MEDS: Apixaban 5 MG TAB PO SCH ×2 (08:12→20:48)
[2020-01-26] MEDS: Losartan Potassium 50 MG TAB PO SCH (08:12)
[2020-01-26] MEDS: Carvedilol 3.125 MG TAB PO SCH ×2 (08:13→20:48)
[2020-01-26] MEDS: Famotidine 20 MG TAB PO SCH ×2 (08:13→20:48)
[2020-01-26] MEDS: Ferrous Sulfate 325 MG TAB PO SCH (08:13)
[2020-01-26] MEDS: Folic Acid 1 MG TAB PO SCH (08:13)
[2020-01-26] MEDS: Acetaminophen 325 MG TAB PO PRN (20:47)
[2020-01-26] MEDS: Atorvastatin Calcium 40 MG TAB PO SCH (20:48)
[2020-01-27] MEDS: Saccharomyces boulardii 250 MG CAP PO SCH (08:36)
[2020-01-27] MEDS: Allopurinol 100 MG TAB PO SCH (08:36)
[2020-01-27] MEDS: Furosemide 20 MG TAB PO SCH (08:37)
[2020-01-27] MEDS: Ferrous Sulfate 325 MG TAB PO SCH (08:37)
[2020-01-27] MEDS: Losartan Potassium 50 MG TAB PO SCH (08:37)
[2020-01-27] MEDS: Folic Acid 1 MG TAB PO SCH (08:40)
[2020-01-27] MEDS: Apixaban 5 MG TAB PO SCH ×2 (08:40→21:01)
[2020-01-27] MEDS: Famotidine 20 MG TAB PO SCH ×2 (08:40→21:01)
[2020-01-27] MEDS: Carvedilol 3.125 MG TAB PO SCH ×2 (08:41→21:01)
[2020-01-27] MEDS: Atorvastatin Calcium 40 MG TAB PO SCH (21:01)
[2020-01-27] MEDS: Acetaminophen 325 MG TAB PO PRN (21:01)
[2020-01-28] MEDS: Famotidine 20 MG TAB PO SCH ×2 (09:28→20:48)
[2020-01-28] MEDS: Apixaban 5 MG TAB PO SCH ×2 (09:28→20:48)
[2020-01-28] MEDS: Saccharomyces boulardii 250 MG CAP PO SCH (09:28)
[2020-01-28] MEDS: Allopurinol 100 MG TAB PO SCH (09:28)
[2020-01-28] MEDS: Carvedilol 3.125 MG TAB PO SCH ×2 (09:29→20:48)
[2020-01-28] MEDS: Ferrous Sulfate 325 MG TAB PO SCH (09:29)
[2020-01-28] MEDS: Losartan Potassium 50 MG TAB PO SCH (09:29)
[2020-01-28] MEDS: Furosemide 20 MG TAB PO SCH (09:29)
[2020-01-28] MEDS: Folic Acid 1 MG TAB PO SCH (09:29)
[2020-01-28] MEDS: Acetaminophen 325 MG TAB PO PRN (20:47)
[2020-01-28] MEDS: Atorvastatin Calcium 40 MG TAB PO SCH (20:48)
[2020-01-29 05:43] LABS: Calc. Creatinine Clearance 113 mL/min (70-130); Estimated GFR-MDRD Greater than 90
[2020-01-29] MEDS: Saccharomyces boulardii 250 MG CAP PO SCH (08:41)
[2020-01-29] MEDS: Famotidine 20 MG TAB PO SCH ×2 (08:41→20:26)
[2020-01-29] MEDS: Furosemide 20 MG TAB PO SCH (08:41)
[2020-01-29] MEDS: Allopurinol 100 MG TAB PO SCH (08:41)
[2020-01-29] MEDS: Losartan Potassium 50 MG TAB PO SCH (08:42)
[2020-01-29] MEDS: Carvedilol 3.125 MG TAB PO SCH ×2 (08:42→20:27)
[2020-01-29] MEDS: Folic Acid 1 MG TAB PO SCH (08:42)
[2020-01-29] MEDS: Ferrous Sulfate 325 MG TAB PO SCH (08:43)
[2020-01-29] MEDS: Apixaban 5 MG TAB PO SCH ×2 (08:43→20:27)
[2020-01-29] MEDS: Atorvastatin Calcium 40 MG TAB PO SCH (20:27)
[2020-01-30] MEDS: Acetaminophen 325 MG TAB PO PRN (04:30)
[2020-01-30 05:57] LABS: Hemoglobin 9.1 g/dL (14.0-18.0); Platelet Count 144 thou/uL (130-400)
[2020-01-30 06:08] VITALS: BP 115/56; TEMP 98
[2020-01-30] MEDS: Famotidine 20 MG TAB PO SCH (07:38)
[2020-01-30] MEDS: Allopurinol 100 MG TAB PO SCH (07:38)
[2020-01-30] MEDS: Ferrous Sulfate 325 MG TAB PO SCH (07:38)
[2020-01-30] MEDS: Carvedilol 3.125 MG TAB PO SCH (07:38)
[2020-01-30] MEDS: Furosemide 20 MG TAB PO SCH (07:39)
[2020-01-30] MEDS: Apixaban 5 MG TAB PO SCH (07:39)
[2020-01-30] MEDS: Folic Acid 1 MG TAB PO SCH (07:40)
[2020-01-30] MEDS: Saccharomyces boulardii 250 MG CAP PO SCH (07:40)
[2020-01-30] MEDS: Losartan Potassium 50 MG TAB PO SCH (07:40)
== END 2020-01-30 15:03 | DRG 948 ==
LOC: BURMED 16:15
PROVIDERS: ADMIT Family Medicine; ATTEND Family Medicine
DX: R53.81 Other malaise (principal); I42.9 Cardiomyopathy, unspecified; I50.42 Chronic combined systolic (congestive) and diastolic (congestive) heart failure; C81.90 Hodgkin lymphoma, unspecified, unspecified site; I11.0 Hypertensive heart disease with heart failure; E78.5 Hyperlipidemia, unspecified; F03.90 Unspecified dementia, unspecified severity, without behavioral disturbance, psychotic disturbance, mood disturbance, and anxiety; Z90.49 Acquired absence of other specified parts of digestive tract; Z86.711 Personal history of pulmonary embolism; Z79.01 Long term (current) use of anticoagulants
CPT/HCPCS: 36415; 80053; 82565; 85014; 85018; 85025; 85049; Q0162